=== PATIENT | male | born 1960 | race Caucasian/White ===

== ENCOUNTER 2018-09-21 16:43 | Inpatient (IN) ==
[2018-09-21] MEDS ORDERED: Naloxone 0.4 MG/ML INJ IVP PRN (20:54)
--- NOTE | 2018-09-21 21:03 | Internal Med History&Physical ---
<Maye Ross - Last Filed: 09/21/18 22:58> Date of Encounter: 09/21/18 Time of Encounter: 20:30 Internal Medicine - H&P: HPI Chief complaint: right knee pain History of present illness: Mr. Childress is a 58 year old male with no known past medical history. He p resented to [facility] ED this morning complaining of right knee swelling and pain. It was associated with subjective fever and chills. He noticed the swelling and pain this morning. He went to bed yesterday and reports no issues with the knee. He denies any recent injuries to the right knee. He denies any history of IV drug use. He also denies any recent sexual encounter. He also denies any recent camping recommends or being bit by a tick. He reports 2 weeks ago he had an earache which resolved without any medications. He also reported one week ago on he had an episode of nausea and emesis after dinner. He reports some nausea and emesis lasted 1 day and it subsequently resolved but since then he has not felt as energetic. She is denying any episodes of diarrhea or abdominal pain. He is also denied paresthesia or weakness associated with either of the legs. At [facility] they did a x-ray of the right knee which showed effusion and CT of the knee showed chondrocalcinosis. They did arthrocentesis of the right anterior knee and he reports subsequently his fever and chills resolved. He also received vancomycin and clindamycin. This evening he is only complaining of anterior knee pain that worsens with any movement. He denies shortness of breath or chest pain. Past Med Surg Social Fam HX - Past Medical History Source: patient Medical history: other (denies any diagnosis) - Past Surgical History Surgical History: other (testicular surgery) - Social History Smoking Status: Current every day smoker Packs per day: 1 pack per day for the past 30 years Alcohol use: occasionally (2-3 beers on the weekend) - Family History Mother Hx Family Endocrine Disorder: Yes (diabetes) Internal Medicine - H&P: Meds No Known Home Drugs 09/21/18 [History] Allergy/AdvReac Type Severity Reaction Status Date / Time No Known Allergies Allergy Verified 09/21/18 19:36 All Systems PM: A 10-system review of systems was performed and is negative for pertinent findings except as documented above in the HPI. - Constitutional Constitutional: malaise, no chills, no fever(s), no falls, no weakness - EENT Eyes: no blurry vision, no loss of vision, no pain Nose, mouth and throat: no dysphagia, no odynophagia, no sore throat - Cardiovascular Cardiovascular ROS IM: no chest pain, no dyspnea, no dyspnea on exertion - Respiratory Respiratory: no cough, no dyspnea, no chest congestion - Gastrointestinal Gastrointestinal: no abdominal pain, no constipation, no diarrhea, no hematemesis - Genitourinary Genitourinary ROS male: no dysuria, no hematuria - Musculoskeletal Musculoskeletal ROS IM: other (right knee pain), no arthralgias, no back pain, no numbness, no stiffness - Integumentary Integumentary IM: no erythema, no pruritus, no rash - Neurological Neurological ROS: no abnormal gait, no focal weakness, no numbness, no paresthesias, no tremor(s) - Psychiatric Psychiatric: no anxiety, no depression - Endocrine Endocrine IM: no fatigue, no flushing - Hematologic/Lymphatic Hematologic/Lymphatic: no easy bleeding, no easy bruising - Constitutional Exam: Gen: Vitals noted. No acute distress. Appears comfortable. Eyes: anicteric sclerae, moist conjunctivae; no lid-lag; Pupils equal and reactive to light HENT: Atraumatic; oropharynx clear with moist mucous membranes and no mucosal ulcerations; normal hard and soft palate Neck: Trachea midline; supple, no thyromegaly or lymphadenopathy Cardiac: RRR, no murmur, +S1/S2. No JVD noted. Pulmonary: CTA bilaterally, no wheezes, rales or rhonchi, equal chest expansion Abdomen: soft, nontender, no guarding. No masses MSK: ROM intact of left leg, slight limitation of right knee extension due to pain, mild swelling of right anterior knee Extremities: mild edema of right anterior knee, nontender calf Skin: right knee slightly warmer than left, turgor; no rash, ulcers or subcutaneous nodules Neuro: moves all extremities, no focal deficits, sensation intact of bilateral lower extremities Psych: Appropriate mood and behavior. A&Ox3 - Assessment and Plan (1) Effusion, right knee Current Visit: Yes Status: Acute Assessment and plan: Presented to an outside facility today complaining of acute right knee pain and swelling. Exposure showed suprapatellar effusion He underwent arthrocentesis and Gram stain with cultures at the outside facility WBC count was noted to be 14.5 on admission to [facility], should follow up Received vancomycin and clindamycin at outside facility Orthopedic surgery consulted Continue vancomycin and ceftriaxone CBC in the morning NPO after midnight (2) Elevated WBC count Current Visit: Yes Status: Acute Assessment and plan: Presented to outside facility with right knee pain and swelling. WBC noted to be 14.5 Likely infectious cause of right knee effusion He denies any recent injuries to the knee or previous instrumentation Also denies any low back pain or stiffness and denies recent unprotected sexual encounter Received vancomycin and clindamycin at outside facility Bodily fluid cultures pending Will continue vancomycin and ceftriaxone Called [facility] lab and they report gram stain and cultures will return in three days, continue following up Continue to monitor vitals Qualifiers: Leukocytosis type: unspecified Qualified Code(s): D72.829 - Elevated white blood cell count, unspecified (3) Elevated LFTs Current Visit: Yes Status: Acute Assessment and plan: Noted to have elevated ALT and AST. AST 76, ALT 147 and alkaline phosphatase 222 He denies excessive alcohol use Also denies IV drug use No abdominal pain Repeat LFTs pending with 4 am labs If continues to remain elevated consider GI consult (4) Tobacco use Current Visit: Yes Status: Chronic Assessment and plan: Current smoker 30 pack year history (5) DVT prophylaxis Current Visit: Yes Status: Acute Assessment and plan: SubQ heparin - Time Spent With Patient Total time spent is greater than 50% in coordination of care (as documented) at patient's floor/unit and/or counseling patient: <Saleem Rushing - Last Filed: 09/22/18 07:39> Date of Encounter: 09/22/18 Internal Medicine - H&P: HPI History of present illness: Mr. Childress is a 58 year old male All Systems PM: A 10-system review of systems was performed and is negative for pertinent findings except as documented above in the HPI. - Constitutional Vitals: Temp Pulse Resp BP Pulse Ox 98.5 F 96 16 134/73 98 09/22/18 06:37 09/22/18 06:37 09/22/18 06:37 09/22/18 06:37 04/17/19 06:37 - Time Spent With Patient Total time spent is greater than 50% in coordination of care (as documented) at patient's floor/unit and/or counseling patient: - Attending Attestation I saw and evaluated the patient. I reviewed the residents note, performed my own physical examination and agree with findings and plan as documented in the residents note. Patient seen and examined on 09/22/18. Patient denies complaints. Knee feeling better after being drained. Orthopedic surgery to see this morning, follow up recommendations.
[2018-09-21] MEDS ORDERED: *HR* Heparin 5,000 UNIT/ML VIAL SQ SCH (22:00)
[2018-09-21] MEDS: Ibuprofen 400 MG TABLET PO PRN (22:38)
[2018-09-21] MEDS ORDERED: Acetaminophen 325 MG TABLET PO PRN (22:55)
[2018-09-21] MEDS ORDERED: Ondansetron 4 MG/2 ML VIAL IVP PRN (22:56)
[2018-09-22 07:40] LABS: Basophils % 0.3 %; Eosinophils # 0.1 K/mcL (0.0-0.6); Eosinophils % 0.6 %; Hematocrit 38.1 % (37.5-50.1); Hemoglobin 12.7 g/dL (12.9-16.9); Lymphocytes # 2.4 K/mcL (0.6-4.6); Mean Corpuscular HGB Conc 33.3 g/dL (31.6-35.5); Mean Corpuscular Hemoglobin 32.7 pg (28.0-33.3); Mean Corpuscular Volume 98.2 fL (83.0-100.0); Mean Platelet Volume 8.6 fL (9.4-12.4); Monocytes # 1.6 K/mcL (0.0-1.3); Monocytes % 13.8 %; Neutrophils # 7.3 K/mcL (1.6-8.9); Platelet Count 308 K/mcL (140-400); Red Blood Count 3.88 M/mcL (4.19-5.50); Red Cell Distribution Width 13.3 % (11.5-14.5); Segmented Neutrophils % 63.3 %
[2018-09-22 07:58] LABS: Alanine Aminotransferase 82 Units/L (7-52); Albumin 3.1 g/dL (3.5-5.7); Alkaline Phosphatase 161 Units/L (34-104); Aspartate Amino Transferase 37 Units/L (13-39); BUN/Creatinine Ratio 12 (6-26); Bilirubin,Direct 0.4 mg/dL (0.0-0.2); Bilirubin,Indirect 0.5 mg/dL (0.0-1.2); Bilirubin,Total 0.9 mg/dL (0.3-1.0); Blood Urea Nitrogen 9 mg/dL (6-20); Calcium 9.5 mg/dL (8.6-10.3); Carbon Dioxide 27 mEq/L (23-29); Chloride 102 mEq/L (98-107); Globulin 3.2 g/dL (2.4-3.5); Glucose 109 mg/dL (70-105); Osmolality,Calculated 279 (280-300); Sodium 135 mEq/L (136-145); Total Protein 6.3 g/dL (6.4-8.9); eGFR For Non-African Americans > 60 (> 60)
[2018-09-22 08:01] LABS: INR 1.1; Prothrombin Time 12.2 Seconds (9.4-12.1)
[2018-09-22] MEDS: cefTRIAXone 2,000 MG in Water for inj. (sterile) 20 ML 20 ML IVP SCH (08:38)
[2018-09-22] MEDS: Ibuprofen 400 MG TABLET PO PRN ×2 (08:48→17:54)
--- NOTE | 2018-09-22 08:48 | Orthopedic Consult Note ---
Date of Encounter: 09/22/18 Time of Encounter: 09:00 Assessment and Plan (1) Pain in right knee Current Visit: Yes Status: Acute Qualifiers: Chronicity: acute Qualified Code(s): M25.561 - Pain in right knee (2) Effusion, right knee Current Visit: Yes Status: Acute (3) Elevated WBC count Current Visit: Yes Status: Acute Qualifiers: Leukocytosis type: unspecified Qualified Code(s): D72.829 - Elevated white blood cell count, unspecified History of Present Illness Chief complaint: painful right knee HPI: Mr. Childress is a 58 year old male presenting to [facility] from [facility] for definitive management of effusion of right knee. Patient states he woke up with painful, red, swollen knee yesterday morning and had so much pain with motion and ambulation he presented to ED for evaluation. Patient noted to have received antibiotics at outside hospital. He states after aspiration of the knee at [facility] he had significant relief of pain. He denies ever having had a swollen joint like this before. Denies history of gout. Denies any surgical intervention to the RLE. Admits to surgery for mass removal on right testicle as a young man. Denies any other surgical history. Denies any recent trauma or injury to the knee. 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 On exam patient resting comfortably supine in bed. Alert and oriented x 3. Converses easily. RLE noted to have moderate swelling about the knee. Mild faint erythema noted circumferentially about the knee extending a few cm proximal and distal. No well defined area of erythema noted. Bandage noted to medial joint line at site of aspiration. No drainage noted. On palpation moderate effusion noted. Patient relatively nontender to palpation of the RLE. Warmth noted to effused knee. No calf tenderness or warmth noted. Knee motion severely limited secondary to pain. Patient not tolerating PROM testing and after attempting, states AROM is too painful for testing. Ankle dorsiflexion intact. Neurovascualrly intact RLE. LLE unremarkable on exam. Labwork reviewed from [facility]. Unfortunately it has been discovered that all of their synovial analyses are send out labs and are unable to be reivewed until completed which per [facility] lab will not be for another at least 48 hours. Discussed case with Dr. Metcalf Given patient's presentation significant concern exists for septic right knee. Uric acid wnl, however, CPPD cannot be ruled out at this point, but steroid use would not be recommended without the confirmation of negative gram stain from aspiration. With patient having already received several doses of antibiotic with favorable white count and vitals response, again, concern for infected joint exists. Dr. Metcalf has recommended right knee arthroscopic irrigation and debridement with possible synovial biopsy for definitive evaluation and treatment. This was discussed with patient at time of exam and will be further discussed by Dr. Metcalf with patient tomorrow. S/w Dr. Hernandez re: patient's disposition and plan NPO midnight 09/23 Pain relief as needed per primary team Thank you for this consultation. Past Med Surg Social Fam HX - Past Medical History Medical history: other (denies any diagnosis) Psychiatric history: no psych history - Past Surgical History Surgical History: other Additional surgical history: growth taken off of right testicle when patient was 23 - Social History Smoking Status: Current every day smoker Packs per day: 1 pack per day for the past 30 years Alcohol use: occasionally Drug use: none - Family History Mother Hx Family Endocrine Disorder: Yes (diabetes) Medications and Allergies RX: No Known Home Drugs 09/21/18 [History] Allergy/AdvReac Type Severity Reaction Status Date / Time No Known Allergies Allergy Verified 09/21/18 19:36 All Systems Reviewed: The remainder of the systems were reviewed and are negative Physical Exam - Constitutional Vitals: Temp Pulse Resp BP Pulse Ox 98.5 F 96 16 134/73 98 09/22/18 06:37 09/22/18 06:37 09/22/18 06:37 09/22/18 06:37 09/22/18 06:37 Results - Labs Result Diagrams: 09/23/18 03:21 09/23/18 03:21 Labs: Abnormal lab results WBC 11.5 K/mcL (4.3-11.1) H 09/22/18 07:17 RBC 3.88 M/mcL (4.19-5.50) L 09/22/18 07:17 Hgb 12.7 g/dL (12.9-16.9) L 09/22/18 07:17 MPV 8.6 fL (9.4-12.4) L 09/22/18 07:17 Monocytes # 1.6 K/mcL (0.0-1.3) H 09/22/18 07:17 PT 12.2 Seconds (9.4-12.1) H 09/22/18 07:17 Sodium 135 mEq/L (136-145) L 09/22/18 07:17 Glucose 109 mg/dL (70-105) H 09/22/18 07:17 Calculated Osmolality 279 (280-300) L 09/22/18 07:17 Direct Bilirubin 0.4 mg/dL (0.0-0.2) H 09/22/18 07:17 ALT 82 Units/L (7-52) H 09/22/18 07:17 Alkaline Phosphatase 161 Units/L (34-104) H 09/22/18 07:17 Serum Total Protein 6.3 g/dL (6.4-8.9) L 09/22/18 07:17 Albumin 3.1 g/dL (3.5-5.7) L 09/22/18 07:17 Albumin/Globulin Ratio 1.0 (1.1-2.2) L 09/22/18 07:17 H & H 09/22/18 Range/Units 07:17 Hgb 12.7 L (12.9-16.9) g/dL Hct 38.1 (37.5-50.1) % All other labs normal. Consult Discharge Plan - Plan Referrals: NONE,PCP [Primary Care Provider] -
--- NOTE | 2018-09-22 08:49 | Event Note ---
<Melonie Delgado N - Last Filed: 09/22/18 15:04> Date of Encounter: 09/22/18 Time of Encounter: 08:49 INTERVAL HISTORY Mr. Childress is a 58-year old male who was admitted to the hospital for management of right knee effusion concerning for acute infection. He was started on empiric antibiotic therapy with vancomycin and zosyn. On exam this morning, he reports improvement in pain since joint aspiriation was performed in outside ED. He reports a constant ache in his right knee, and states that the pain is sharp and radiates superiorly and inferiorly from the knee with movement. He reports a low-grade fever overnight of 100.4. He denies any chills, nausea, vomiting, or other concerns at this time. Nursing staff reports no acute overnight events. PHYSICAL EXAM GENERAL: Well-developed, well-nourished, disheveled adult male in no acute distress. HEENT: Atraumatic and normocephalic. CARDIOVASCULAR: Regular rate and rhythm. S1 and S2 present. No murmurs, gallops, or rubs. RESPIRATORY: Clear to auscultation bilaterally. Chest rises and falls symmetrically with respiration. No accessory muscle use noted. GASTROINTESTINAL: Abdomen is soft, nontender, nondistended. EXTREMITIES: No clubbing, cyanosis, or edema present. SKIN: Warm, dry, and intact. Right knee is warm and edematous, without apparent erythema. NEUROLOGIC: Alert and oriented x3. Patient is cooperative with exam and answers questions appropriately. No apparent focal deficits present. PSYCHIATRIC: Appropriate mood and affect. ASSESSMENT AND PLAN (1) Right knee effusion Uncertain etiology - septic arthritis vs. pseudogout vs. inflammatory response. Arthrocentesis was performed at outside facility prior to hospital transfer, with appropriate microbiology studies. Consult placed to orthopedics by ED team. - Continue empiric antibiotic therapy with vancomycin and ceftriaxone. - Cultures pending. Will followup on results. - Orthopedics recommendations pending. Appreciate assistance with management of this problem. (2) Leukocytosis Secondary to acute infection of right knee vs. reactive etiology. - Continue current empiric antibiotic therapy. - Repeat and trend CBC with morning laboratory studies. (3) Elevated LFTs Unclear etiology. Patient denies excessive alcohol consumption, and reports drinking only 3 beers on the weekends. - Repeat LFTs tomorrow with morning laboratory studies. - CIWA evaluation Q4H for signs of alcohol withdrawal; CIWA protocol orders placed if patient begins to show signs of withdrawal. (4) Tobacco abuse - Tobacco cessation counselling provided. - Nicotine patch PRN. Patient declined offer this morning. (5) DVT prophylaxis - SCDs. <Joel Hernandez - Last Filed: 09/22/18 15:15> Date of Encounter: 09/22/18 Mr Childress was admitted earlier this AM due to possible septic R knee. He is being evaluated by ortho. Exam alert Comfortable Mucus membranes dry R knee warm and swollen Agree with assessment and plan as above and in H&P Awaiting further ortho recommendations.
[2018-09-22] MEDS ORDERED: *HR* LORazepam 2 MG/ML VIAL IVP PRN ×3 (11:30)
[2018-09-23] MEDS: Ibuprofen 400 MG TABLET PO PRN ×2 (00:09→09:01)
[2018-09-23 03:36] LABS: Basophils % 0.3 %; Eosinophils # 0.2 K/mcL (0.0-0.6); Eosinophils % 1.4 %; Hematocrit 37.1 % (37.5-50.1); Hemoglobin 12.6 g/dL (12.9-16.9); Immature Granulocytes % 0.8 % (0-4); Lymphocytes # 2.7 K/mcL (0.6-4.6); Lymphocytes % 25.2 %; Mean Platelet Volume 8.6 fL (9.4-12.4); Monocytes # 1.6 K/mcL (0.0-1.3); Monocytes % 15.1 %; Neutrophils # 6.1 K/mcL (1.6-8.9); Platelet Count 361 K/mcL (140-400); Red Blood Count 3.71 M/mcL (4.19-5.50); Red Cell Distribution Width 13.3 % (11.5-14.5); Segmented Neutrophils % 57.2 %
[2018-09-23 03:56] LABS: Alanine Aminotransferase 150 Units/L (7-52); Albumin/Globulin Ratio 0.9 (1.1-2.2); Alkaline Phosphatase 245 Units/L (34-104); Aspartate Amino Transferase 112 Units/L (13-39); BUN/Creatinine Ratio 14 (6-26); Bilirubin,Total 0.6 mg/dL (0.3-1.0); Blood Urea Nitrogen 11 mg/dL (6-20); Calcium 9.2 mg/dL (8.6-10.3); Carbon Dioxide 27 mEq/L (23-29); Chloride 103 mEq/L (98-107); Globulin 3.3 g/dL (2.4-3.5); Glucose 125 mg/dL (70-105); Osmolality,Calculated 283 (280-300); Sodium 136 mEq/L (136-145); Total Protein 6.3 g/dL (6.4-8.9); eGFR For Non-African Americans > 60 (> 60)
--- NOTE | 2018-09-23 07:48 | Orthopedics Progress Note ---
Date of Encounter: 09/23/18 Time of Encounter: 07:47 Subjective Interval history: Patient seen this morning swelling of right knee unfortunately this was aspirated another facility which sends out results for Gram stain and culture. Patient has elevated CRP patient significant discomfort no erythema. Recommendations for right knee arthroscopic irrigation and debridement. We reviewed the risks and benefits as well as recovery. All questions were answered. The patient agreed to this treatment plan and acknowledged an understanding of the treatment plan as described. Objective Vital signs: Vital Signs Temp Pulse Resp BP Pulse Ox 09/23/18 06:35 98.3 F 78 16 112/68 98 09/23/18 04:09 98.1 F 73 17 106/67 97 09/22/18 23:24 98.2 F 88 17 125/83 96 09/22/18 19:19 99.1 F 92 20 129/79 95 09/22/18 15:54 90 18 127/73 94 09/22/18 14:11 98 F 76 18 128/76 96 09/22/18 11:50 97.6 F 79 16 123/73 97 Intake and Output 09/22/18 09/22/18 09/23/18 15:59 23:59 07:59 Intake Total 140 / 140 450 / 450 500 / 500 Output Total 450 / 450 875 / 875 1000 / 1000 Balance -310 / -310 -425 / -425 -500 / -500 Intake: IV Fluids 20 / 20 250 / 250 250 / 250 Rocephin 2,000 MG In Water for 20 / 20 inj. (sterile) 20 ML @ 600 mls/ hr IVP Q24H [facility] Rx#:[id number] Vancocin 1,000 MG In 0.9 % 250 / 250 250 / 250 Sodium Chloride 250 ML @ 167 mls/hr IVPB Q12H [facility] Rx#: [id number] Oral 120 / 120 200 / 200 250 / 250 Output: Urine 450 / 450 875 / 875 1000 / 1000 Other: Meal Lunch Percent of Meal Consumed 100% Weight 76.4 kg Patient Weight 09/23/18 23:59 Weight 76.4 kg - Labs CBC & BMP: 09/23/18 03:21 09/23/18 03:21 Labs: Abnormal lab results RBC 3.71 M/mcL (4.19-5.50) L 09/23/18 03:21 Hgb 12.6 g/dL (12.9-16.9) L 09/23/18 03:21 Hct 37.1 % (37.5-50.1) L 09/23/18 03:21 MCH 34.0 pg (28.0-33.3) H 09/23/18 03:21 MPV 8.6 fL (9.4-12.4) L 09/23/18 03:21 Monocytes # 1.6 K/mcL (0.0-1.3) H 09/23/18 03:21 PT 12.2 Seconds (9.4-12.1) H 09/22/18 07:17 Glucose 125 mg/dL (70-105) H 09/23/18 03:21 Direct Bilirubin 0.4 mg/dL (0.0-0.2) H 09/22/18 07:17 AST 112 Units/L (13-39) H 09/23/18 03:21 ALT 150 Units/L (7-52) H 09/23/18 03:21 Alkaline Phosphatase 245 Units/L (34-104) H 09/23/18 03:21 Serum Total Protein 6.3 g/dL (6.4-8.9) L 09/23/18 03:21 Albumin 3.0 g/dL (3.5-5.7) L 09/23/18 03:21 Albumin/Globulin Ratio 0.9 (1.1-2.2) L 09/23/18 03:21 Consult Discharge Plan - Plan Referrals: NONE,PCP [Primary Care Provider] -
--- NOTE | 2018-09-23 08:07 | Internal Med Progress Note ---
<Joel Hernandez - Last Filed: 09/23/18 12:52> Hospitalist Progress Note - Encounter Date of Encounter: 09/23/18 - Exam Vitals: Temp Pulse Resp BP Pulse Ox 98.4 F 71 17 115/73 97 09/23/18 11:30 09/23/18 11:30 09/23/18 11:30 09/23/18 11:30 09/23/18 11:30 - Assessment and Plan (1) Septic joint of right knee joint Current Visit: Yes Status: Suspected (2) Elevated LFTs Current Visit: Yes Status: Acute (3) Effusion, right knee Current Visit: Yes Status: Acute (4) Tobacco use Current Visit: Yes Status: Chronic (5) DVT prophylaxis Current Visit: Yes Status: Acute (6) Elevated WBC count Current Visit: Yes Status: Acute - Time Spent with Patient Total time spent is greater than 50% in coordination of care (as documented) at patient's floor/unit and/or counseling patient: Internal Medicine: Result - Labs CBC & Chem 7: 09/23/18 03:21 09/23/18 03:21 Labs: Short CBC 09/23/18 Range/Units 03:21 WBC 10.7 (4.3-11.1) K/mcL Hgb 12.6 L (12.9-16.9) g/dL Hct 37.1 L (37.5-50.1) % Plt Count 361 (140-400) K/mcL Neutrophils # 6.1 (1.6-8.9) K/mcL BMP 09/23/18 03:21 Sodium 136 Potassium 4.0 Chloride 103 Carbon Dioxide 27 BUN 11 Creatinine 0.80 Glucose 125 H Calcium 9.2 Liver Function 09/23/18 Range/Units 03:21 Total Bilirubin 0.6 (0.3-1.0) mg/dL AST 112 H (13-39) Units/L ALT 150 H (7-52) Units/L Alkaline Phosphatase 245 H (34-104) Units/L Albumin 3.0 L (3.5-5.7) g/dL - ABG Interpretation ABG results: PT/INR, D-dimer PT 12.2 Seconds (9.4-12.1) H 09/22/18 07:17 Consult Discharge Plan - Plan Referrals: NONE,PCP [Primary Care Provider] - - Attending Attestation I examined this patient and my medical decision-making was reviewed with the Resident Physician on 09/23/18. I agree with the documented findings, disposition and treatment plan as described except to the extent set forth below. Mr Childress is currently admitted for potential infected R knee. He remains moderate to high risk due to potential for worsening clinical status. Mr Childress is resting. He is to go to OR today. No fever or chills. No CP or SOB. Exam alert Comfortable Mucus membranes dry Heart reg No wheeze abd soft and nontender R knee about the same I/P 1. Possible R knee septic joint - to go to OR today for washout. Further diagnoses and plan as above. <Melonie Delgado N - Last Filed: 09/23/18 20:03> Hospitalist Progress Note - Encounter Date of Encounter: 09/23/18 Time of Encounter: 08:07 - Subjective Interval History: Patient seen and evaluated at the bedside. He reports continued pain and swelling in his right knee, which he states is a constant ache; however, if he moves his knee, he has sharp shooting pain from medial to lateral across the knee joint. He denies any fevers, chills, or worsening redness. Patient is currently NPO awaiting arthroscopy with Dr. Metcalf later today. He denies any acute concerns at this time. - Exam Vitals: Temp Pulse Resp BP Pulse Ox 98.3 F 78 16 112/68 98 09/23/18 06:35 09/23/18 06:35 09/23/18 06:35 09/23/18 06:35 09/23/18 06:35 Exam: GENERAL: Well-developed, well-nourished, disheveled adult male in no acute distress. HEENT: Atraumatic and normocephalic. CARDIOVASCULAR: Regular rate and rhythm. S1 and S2 present. No murmurs, gallops, or rubs. RESPIRATORY: Clear to auscultation bilaterally. Chest rises and falls symmetrically with respiration. No accessory muscle use noted. GASTROINTESTINAL: Abdomen is soft, nontender, nondistended. EXTREMITIES: No clubbing, cyanosis, or edema present. SKIN: Warm, dry, and intact. Right knee is warm and edematous, without apparent erythema. NEUROLOGIC: Alert and oriented x3. Patient is cooperative with exam and answers questions appropriately. No apparent focal deficits present. PSYCHIATRIC: Appropriate mood and affect. - Assessment and Plan (1) Effusion, right knee Current Visit: Yes Status: Acute Assessment and Plan: Uncertain etiology - septic arthritis vs. pseudogout vs. inflammatory response. Arthrocentesis was performed at outside facility prior to hospital transfer, with appropriate microbiology studies. Consult placed to orthopedics by ED team. - Continue empiric antibiotic therapy with vancomycin and ceftriaxone. - Cultures pending. Will followup on results. - Plan for arthroscopy today with Dr. Metcalf. (2) Elevated WBC count Current Visit: Yes Status: Acute Assessment and Plan: Secondary to acute infection of right knee vs. reactive etiology. - Continue current empiric antibiotic therapy. - Repeat and trend CBC with morning laboratory studies. (3) Elevated LFTs Current Visit: Yes Status: Acute Assessment and Plan: Unclear etiology. Patient denies excessive alcohol consumption, and reports drinking only 3 beers on the weekends. - Repeat LFTs tomorrow with morning laboratory studies. - CIWA evaluation Q4H for signs of alcohol withdrawal; CIWA protocol orders placed if patient begins to show signs of withdrawal. (4) Tobacco use Current Visit: Yes Status: Chronic Assessment and Plan: - Tobacco cessation counselling provided. - Nicotine patch PRN. Patient declined offer this morning. (5) DVT prophylaxis Current Visit: Yes Status: Acute Assessment and Plan: - SCDs. - Time Spent with Patient Total time spent is greater than 50% in coordination of care (as documented) at patient's floor/unit and/or counseling patient: Internal Medicine: Result - Labs CBC & Chem 7: 09/23/18 03:21 09/23/18 03:21 Labs: Short CBC 09/23/18 Range/Units 03:21 WBC 10.7 (4.3-11.1) K/mcL Hgb 12.6 L (12.9-16.9) g/dL Hct 37.1 L (37.5-50.1) % Plt Count 361 (140-400) K/mcL Neutrophils # 6.1 (1.6-8.9) K/mcL BMP 09/23/18 03:21 Sodium 136 Potassium 4.0 Chloride 103 Carbon Dioxide 27 BUN 11 Creatinine 0.80 Glucose 125 H Calcium 9.2 Liver Function 09/23/18 Range/Units 03:21 Total Bilirubin 0.6 (0.3-1.0) mg/dL AST 112 H (13-39) Units/L ALT 150 H (7-52) Units/L Alkaline Phosphatase 245 H (34-104) Units/L Albumin 3.0 L (3.5-5.7) g/dL - ABG Interpretation ABG results: PT/INR, D-dimer PT 12.2 Seconds (9.4-12.1) H 09/22/18 07:17 <Joel Hernandez - Last Filed: 09/23/18 12:52> (1) Septic joint of right knee joint Qualifiers: Septic arthritis organism: streptococcal Qualified Code(s): M00.261 - Other streptococcal arthritis, right knee (6) Elevated WBC count Qualifiers: Leukocytosis type: unspecified Qualified Code(s): D72.829 - Elevated white blood cell count, unspecified <Melonie Delgado - Last Filed: 09/23/18 20:03> (2) Elevated WBC count Qualifiers: Leukocytosis type: unspecified Qualified Code(s): D72.829 - Elevated white bl ood cell count, unspecified
[2018-09-23] MEDS: cefTRIAXone 2,000 MG in Water for inj. (sterile) 20 ML 20 ML IVP SCH (09:02)
--- NOTE | 2018-09-23 17:20 | Anesthesia Evaluation PreOp ---
Date of Encounter: 09/23/18 Time of Encounter: 17:18 - Past History Planned Operation: Right Knee scope I & D Cardiac History: Denies any Significant Hx Pulmonary History: Smoker, Pack/yr (30) HOME APPLIANCE TECHNICIAN History: Denies Any Significant HX Other Medical History: Denies Any Significant HX Anesthesia History: No Prior Anesthetic Complications Alcohol Use: occasionally Drug use: none Medications and Allergies No Known Home Drugs 09/21/18 [History] Allergy/AdvReac Type Severity Reaction Status Date / Time No Known Allergies Allergy Verified 09/21/18 19:36 - Meds/Allergy Pre-op Review Medications Reviewed: Yes Allergies Reviewed: Yes Beta Blockers on Current Med List: No Anesthesia Results - Labs 09/23/18 03:21 09/23/18 03:21 Anesthesia Exam O2 Sat Weight 76.4 kg O2 Sat by Pulse Oximetry 97 O2 Sat by Pulse Oximetry 96 O2 Sat by Pulse Oximetry 97 O2 Sat by Pulse Oximetry 97 O2 Sat by Pulse Oximetry 98 O2 Sat by Pulse Oximetry 97 O2 Sat by Pulse Oximetry 96 O2 Sat by Pulse Oximetry 95 Vital Signs Temp Pulse Resp BP Pulse Ox 100.4 F H 106 17 149/88 96 09/21/18 21:02 09/21/18 21:02 09/21/18 21:02 09/21/18 21:02 09/21/18 21:02 Vital Signs/O2 Sat, Most Current Temp Pulse Resp BP Pulse Ox 98.4 F 71 17 115/73 97 09/23/18 11:30 09/23/18 11:30 09/23/18 11:30 09/23/18 11:30 09/23/18 11:30 NPO (# of Hours): > 8 hrs Pain Scale: 0 Pain Scale Used: Numeric (1 - 10) - HEENT Pupil (Motor): Pupils equal, EOMI Mallampati: I Teeth: Poor dentition Oral Opening: Greater than 3 - HOME APPLIANCE TECHNICIAN LOC: Oriented HOME APPLIANCE TECHNICIAN Motor: Normal RUE, Normal LUE, Normal RLE, Normal LLE, Normal Face HOME APPLIANCE TECHNICIAN Sensory: Normal: RUE, LUE, RLE, LLE, Face - Cardiac Rhythm: Regular Murmur: None JVD: No Carotid Bruit: No - Pulmonary Breath Sounds: bilateral Clear Respiratory Effort: Symmetrical Anesthesia Assess/Plan ASA Score: 2 Level of consciousness: Cooperative Anesthetic Plan: General Autologous Blood: Yes Monitoring Plan: Standard Monitors Recovery Plan: PACU
[2018-09-23] MEDS ORDERED: Bupivacaine/EPI 1:200k 0.5%PF 30 ML VIAL ONE (17:49)
[2018-09-23] MEDS ORDERED: Ondansetron 4 MG/2 ML VIAL ONE (18:00)
[2018-09-23] MEDS ORDERED: *HR* Midazolam HCl 2 MG/2 ML VIAL ONE (18:00)
[2018-09-23] MEDS ORDERED: Lidocaine -MPF 2% 2 ML VIAL ONE (18:00)
[2018-09-23] MEDS ORDERED: Dexamethasone 4 MG/ML VIAL ONE (18:00)
[2018-09-23] MEDS ORDERED: *HR* Propofol 200 MG/20 ML VIAL IVP ONE (18:01)
[2018-09-23] MEDS ORDERED: *HR* FentaNYL (PF) 100 MCG/2 ML VIAL ONE (18:04)
[2018-09-23] MEDS ORDERED: *HR* HYDROMORPHONE 2 MG/ML VIAL ONE (18:19)
--- NOTE | 2018-09-23 18:27 | Orthopedic Operative Note ---
Date of procedure: 09/23/18 Pre-op diagnosis: Infected right knee Post-op diagnosis: same Procedure: Procedure: Right knee arthroscopic irrigation debridement Estimated blood loss: 5cc Hardware: Cartilage surfaces: Patella:3 Trochlear groove:normal Medial compartment:3 Lateral compartment:normal Exam Under anesthesia: Full flexion and full extension no instability no erythema, grade 3 effusion. Patient was brought to the operating room and placed on the operating room t able. After general anesthesia was administered. The operative leg was examined and noted. The operative leg was prepped and draped in the sterile surgical fashion. The patient received IV antibiotics prior to skin incision. A superior medial outflow portal was established purulent material was returned, it was sent for Gram stain and culture. The arthroscope was introduced through an anterolateral portal. Diagnostic evaluation of the patella trochlear groove medial and lateral compartments were performed. Patient noted to have grade 3 changes undersurface of patella and medial femoral condyle. Patient also had evidence of previous partial medial meniscectomy in the past possibly. No articular injury medial and lateral compartments. ACL PCL without pathology. Lateral meniscus intact medial meniscus no new tears. 6 L of fluid were flushed through the knee. The arthroscope was removed from the knee. Portals were closed with interrupted 2-0 nylon suture. The knee was infiltrated with half percent Marcaine with epinephrine. The patient was placed in a sterile dressing. The patient was extubated and tolerated the procedure well and transferred to the recovery room in stable condition. Anesthesia: GETA Surgeon: Willy Metcalf Was there an apartment assistant manager present: No Estimated blood loss (cc): 5 Condition: stable Disposition: PACU
--- NOTE | 2018-09-23 19:06 | Anesthesia Evaluation Post Op ---
Date of Encounter: 09/23/18 Time of Encounter: 19:06 - Vital Signs Vital Signs: Vital Signs/O2 Sat, Most Current Temp Pulse Resp BP Pulse Ox 98.2 F 95 16 139/90 96 09/23/18 19:04 09/23/18 19:04 09/23/18 19:04 09/23/18 19:04 09/23/18 19:04 - Lungs Lungs: Clear Ascult./Percussion - Airway Airway: Non-obstructed - Cardiovascular Regular Rate - Pain Pain Scale: 0 Pain Scale used: Numeric (1 - 10) - Nausea Vomiting Nausea Vomiting: Not Present - Hydration Hydration: Tolerates oral liquids - Discharge PostOp Status: Transfer Patient to floor
[2018-09-23] MEDS ORDERED: Sennosides 8.6 MG TABLET PO PRN (19:18)
[2018-09-23] MEDS ORDERED: MOM Conc 10 ML UD.LIQ PO PRN (19:18)
[2018-09-23] MEDS ORDERED: Ringers Solution, Lactated 1,000 ML IVC SCH (19:18)
[2018-09-23] MEDS ORDERED: Naloxone 0.4 MG/ML INJ IVP PRN ×2 (19:18)
[2018-09-23] MEDS ORDERED: *HR* Promethazine 25 MG/ML VIAL IVP PRN (19:18)
[2018-09-23] MEDS ORDERED: Ondansetron 4 MG/2 ML VIAL IVP PRN ×2 (19:18)
[2018-09-23] MEDS ORDERED: *HR* LORazepam 2 MG/ML VIAL IVP PRN ×3 (19:18)
[2018-09-23] MEDS: Acetaminophen 325 MG TABLET PO PRN (21:22)
[2018-09-23] MEDS ORDERED: *HR* HYDROcodone/Acet 5/325 mg TABLET PO PRN (21:28)
[2018-09-24 04:27] LABS: Basophils % 0.2 %; Hematocrit 37.1 % (37.5-50.1); Hemoglobin 12.2 g/dL (12.9-16.9); Immature Granulocytes % 1.1 % (0-4); Lymphocytes % 9.4 %; Mean Corpuscular HGB Conc 32.9 g/dL (31.6-35.5); Mean Corpuscular Hemoglobin 32.9 pg (28.0-33.3); Mean Platelet Volume 8.6 fL (9.4-12.4); Monocytes # 0.9 K/mcL (0.0-1.3); Neutrophils # 8.8 K/mcL (1.6-8.9); Platelet Count 433 K/mcL (140-400); Red Blood Count 3.71 M/mcL (4.19-5.50); Red Cell Distribution Width 13.2 % (11.5-14.5); Segmented Neutrophils % 81.3 %
[2018-09-24 04:42] LABS: BUN/Creatinine Ratio 15 (6-26); Blood Urea Nitrogen 11 mg/dL (6-20); Calcium 9.6 mg/dL (8.6-10.3); Carbon Dioxide 28 mEq/L (23-29); Chloride 99 mEq/L (98-107); Glucose 158 mg/dL (70-105); Osmolality,Calculated 279 (280-300); Potassium 4.5 mEq/L (3.5-5.1); Sodium 133 mEq/L (136-145); eGFR For Non-African Americans > 60 (> 60)
[2018-09-24 06:08] LABS: Troponin I < 0.03 ng/mL (< 0.04)
--- NOTE | 2018-09-24 06:26 | Orthopedics Progress Note ---
Date of Encounter: 09/24/18 Time of Encounter: 06:25 Subjective Interval history: Patient was seen this morning doing well without complaints. Afebrile vital signs stable. Operative extremity: Neurovascularly intact Dressing clean dry and intact Calves nontender Assessment and plan: Continue with postoperative care Cultures pending Objective Vital signs: Vital Signs Temp Pulse Pulse Resp BP Pulse Ox 09/24/18 04:26 97.7 F 72 16 127/73 95 09/23/18 22:30 98.7 F 76 16 122/84 94 09/23/18 21:30 98.4 F 78 16 115/76 95 09/23/18 20:30 98.5 F 84 16 129/80 95 09/23/18 20:05 98.6 F 76 16 132/82 96 09/23/18 19:30 98.2 F 78 76 16 130/78 95 09/23/18 19:04 98.2 F 95 16 139/90 96 09/23/18 18:55 96 14 138/83 96 09/23/18 18:45 100 18 136/38 95 09/23/18 18:35 99.8 F H 96 16 105/72 93 09/23/18 11:30 98.4 F 71 17 115/73 97 09/23/18 09:45 98.4 F 86 18 128/76 96 09/23/18 09:00 98.7 F 80 18 120/72 97 09/23/18 06:35 98.3 F 78 16 112/68 98 Intake and Output 09/23/18 09/23/18 09/24/18 15:59 23:59 07:59 Intake Total Output Total 300 / 300 305 / 305 Balance -280 / -280 -305 / -305 Intake: IV Fluids Rocephin 2,000 MG In Water for inj. (sterile) 20 ML @ 600 mls/ hr IVP Q24H [facility] Rx#:[id number] Oral 0 / 0 Tube Feeding 0 / 0 Other 0 / 0 Intake, Autotransfusion Amount 0 / 0 Free Water 0 / 0 Output: Urine 300 / 300 300 / 300 Estimated Blood Loss 5 / 5 Other: Meal Lunch Percent of Meal Consumed 0% Weight 79 kg - Labs CBC & BMP: 09/24/18 03:39 09/24/18 03:39 Labs: Abnormal lab results RBC 3.71 M/mcL (4.19-5.50) L 09/24/18 03:39 Hgb 12.2 g/dL (12.9-16.9) L 09/24/18 03:39 Hct 37.1 % (37.5-50.1) L 09/24/18 03:39 Plt Count 433 K/mcL (140-400) H 09/24/18 03:39 MPV 8.6 fL (9.4-12.4) L 09/24/18 03:39 PT 12.2 Seconds (9.4-12.1) H 09/22/18 07:17 Sodium 133 mEq/L (136-145) L 09/24/18 03:39 Glucose 158 mg/dL (70-105) H 09/24/18 03:39 Calculated Osmolality 279 (280-300) L 09/24/18 03:39 Direct Bilirubin 0.4 mg/dL (0.0-0.2) H 09/22/18 07:17 AST 112 Units/L (13-39) H 09/23/18 03:21 ALT 150 Units/L (7-52) H 09/23/18 03:21 Alkaline Phosphatase 245 Units/L (34-104) H 09/23/18 03:21 Serum Total Protein 6.3 g/dL (6.4-8.9) L 09/23/18 03:21 Albumin 3.0 g/dL (3.5-5.7) L 09/23/18 03:21 Albumin/Globulin Ratio 0.9 (1.1-2.2) L 09/23/18 03:21 Consult Discharge Plan - Plan Referrals: NONE,PCP [Primary Care Provider] -
--- NOTE | 2018-09-24 07:04 | Event Note ---
Date of Encounter: 09/24/18 Time of Encounter: 04:21 Notified by nurse of patient appearing to have ST elevation on tele. Ordered EKG computer read shows junctional rhythm, slight ST elevation. No previous EKG on file for comparison. Patient vitals stable denying any chest pain, palpitations, shortness of breath. Will order troponin to ensure normal. Continue tele and nurse to notify of any changes. Reviewed EKG and plan with Dr uRshing.
--- NOTE | 2018-09-24 07:46 | Event Note ---
Date of Encounter: 09/24/18 Time of Encounter: 07:42 Patient was seen and examined. I agree with the progress note as written by the resident physician. Patient admitted with right knee swelling and went to the OR for irrigation and debridement by orthopedics. Cultures are negative to date. He had arthrocentesis done as a facility prior to coming here with cultures there is still pending. He was put on IV vancomycin and ceftriaxone. Noted to have elevated liver function tests. Unclear etiology. Reports some nausea and vomi ting with food prior to this. Yesterday there was some concerning telemetry findings were ST elevations but troponins came back negative. EKG not concerning. Denies any chest pain. GEN: NAD CVS: RRR. S1, S2, No m/r/g RESP: CTAB ABD: Soft, NT, ND, +BS EXT: No edema. 2+ DP. No rashes. Dressing is clean and dry. NEURO: Nonfocal Continue IV vancomycin and Rocephin. Follow up on cultures and try to call [facility] see if cultures there have been finalized. Follow-up on LFTs here today. Get a right upper quadrant ultrasound Continue telemetry Check magnesium and TSH.
[2018-09-24 07:59] LABS: Alanine Aminotransferase 100 Units/L (7-52); Albumin 3.1 g/dL (3.5-5.7); Albumin/Globulin Ratio 0.9 (1.1-2.2); Alkaline Phosphatase 225 Units/L (34-104); Aspartate Amino Transferase 40 Units/L (13-39); Bilirubin,Direct 0.3 mg/dL (0.0-0.2); Bilirubin,Indirect 0.3 mg/dL (0.0-1.2); Bilirubin,Total 0.6 mg/dL (0.3-1.0); Globulin 3.3 g/dL (2.4-3.5); Total Protein 6.4 g/dL (6.4-8.9)
--- NOTE | 2018-09-24 08:55 | Internal Med Progress Note ---
Hospitalist Progress Note - Encounter Date of Encounter: 09/24/18 Time of Encounter: 08:55 - Subjective Interval History: Patient seen and evaluated at the bedside. He endorses significant improvement in his knee pain since undergoing arthroscopy and washout yesterday with Dr. Metcalf. Patient was noted to have some irregularities in his telemetry monitoring overnight, with concern for ST changes; however, stat troponin was WNL. Patient reports no acute complaints at this time. - Exam Vitals: Temp Pulse Resp BP Pulse Ox 97.5 F L 74 14 135/79 95 09/24/18 07:56 09/24/18 07:56 09/24/18 07:56 09/24/18 07:56 09/24/18 07:56 Exam: GENERAL: Well-developed, well-nourished, disheveled adult male in no acute distress. HEENT: Atraumatic and normocephalic. CARDIOVASCULAR: Regular rate and rhythm. S1 and S2 present. No murmurs, gallops, or rubs. RESPIRATORY: Clear to auscultation bilaterally. Chest rises and falls symmetrically with respiration. No accessory muscle use noted. GASTROINTESTINAL: Abdomen is soft, nontender, nondistended. EXTREMITIES: No clubbing, cyanosis, or edema present. SKIN: Warm, dry, and intact. Right knee is wrapped in surgical dressings, with no apparent edema. NEUROLOGIC: Alert and oriented x3. Patient is cooperative with exam and answers questions appropriately. No apparent focal deficits present. PSYCHIATRIC: Appropriate mood and affect. - Assessment and Plan (1) Effusion, right knee Current Visit: Yes Status: Acute Assessment and Plan: Uncertain etiology - septic arthritis vs. pseudogout vs. inflammatory response. Arthrocentesis was performed at outside facility prior to hospital transfer, with appropriate microbiology studies. Arthroscopy and joint washout was performed yesterday by Dr. Metcalf. - Continue empiric antibiotic therapy with vancomycin and ceftriaxone. - Cultures pending. Will followup on results. - Appreciate ongoing recommendations from orthopedic surgery. (2) Elevated LFTs Current Visit: Yes Status: Acute Assessment and Plan: Unclear etiology. Patient denies excessive alcohol consumption, and reports drinking only 3 beers on the weekends. LFTs have continued to be high on repeat laboratory studies throughout hospitalization admission. - Hepatic ultrasound pending. - Continue to repeat in trend LFTs. (3) Hypothyroidism Current Visit: Yes Status: Acute Assessment and Plan: Patient noted to have significantly elevated TSH of 21.032. Subsequent free T4 laboratory study was significant for a low value of 0.14. - Start Synthroid 88mcg daily. - Patient will require outpatient follow-up to ensure proper thyroid hormone dosing. (4) Abnormal EKG Current Visit: Yes Status: Acute Assessment and Plan: Patient reportedly had abnormal telemetry overnight, with concern for ST elevation. Per that note, EKG was ordered, with computer reading significant for junctional rhythm and slight ST elevation. Troponin drawn at that time was WNL. On evaluation this morning, patient denies any chest pain, palpitations, shortness breath, or cardiac symptoms. Magnesium noted to be WNL. - Continue telemetry monitoring. - Anticipate repeat EKG and troponin if patient begins to develop arrhythmia or symptoms concerning for cardiac involvement. (5) Elevated WBC count Current Visit: Yes Status: Resolved (6) Tobacco use Current Visit: Yes Status: Chronic Assessment and Plan: - Tobacco cessation counselling provided. - Nicotine patch PRN. Patient declined offer this morning. (7) DVT prophylaxis Current Visit: Yes Status: Acute Assessment and Plan: - SCDs. - Time Spent with Patient Total time spent is greater than 50% in coordination of care (as documented) at patient's floor/unit and/or counseling patient: Internal Medicine: Result - Labs CBC & Chem 7: 09/24/18 03:39 09/24/18 03:39 Labs: Short CBC 09/24/18 Range/Units 03:39 WBC 10.8 (4.3-11.1) K/mcL Hgb 12.2 L (12.9-16.9) g/dL Hct 37.1 L (37.5-50.1) % Plt Count 433 H (140-400) K/mcL Neutrophils # 8.8 (1.6-8.9) K/mcL BMP 09/24/18 03:39 Sodium 133 L Potassium 4.5 Chloride 99 Carbon Dioxide 28 BUN 11 Creatinine 0.73 Glucose 158 H Calcium 9.6 Cardiac Enzymes 09/24/18 Range/Units 03:39 Troponin I < 0.03 (< 0.04) ng/mL Liver Function 09/24/18 Range/Units 03:39 Total Bilirubin 0.6 (0.3-1.0) mg/dL Direct Bilirubin 0.3 H (0.0-0.2) mg/dL AST 40 H (13-39) Units/L ALT 100 H (7-52) Units/L Alkaline Phosphatase 225 H (34-104) Units/L Albumin 3.1 L (3.5-5.7) g/dL - ABG Interpretation ABG results: PT/INR, D-dimer PT 12.2 Seconds (9.4-12.1) H 09/22/18 07:17 Consult Discharge Plan - Plan Referrals: NONE,PCP [Primary Care Provider] - (5) Elevated WBC count Qualifiers: Leukocytosis type: unspecified Qualified Code(s): D72.829 - Elevated white blood cell count, unspecified
[2018-09-24] MEDS: *HR* OxyCODONE/APAP 5/325 TABLET PO PRN ×3 (09:00→23:22)
[2018-09-24] MEDS: Ascorbic Acid 500 MG TABLET PO SCH ×2 (09:00→17:40)
[2018-09-24] MEDS: Multivit/Ca/Min/Fe/FA 1 TAB TABLET PO SCH (09:00)
[2018-09-24] MEDS: cefTRIAXone 2,000 MG in Water for inj. (sterile) 20 ML 20 ML IVP SCH (09:01)
[2018-09-24 09:44] LABS: Magnesium 2.3 mg/dL (1.6-2.6)
[2018-09-24 09:57] LABS: Thyroid Stimulating Hormone 21.032 mcIU/mL (0.340-5.600)
[2018-09-25 01:33] LABS: Basophils % 0.2 %; Eosinophils # 0.1 K/mcL (0.0-0.6); Hematocrit 35.7 % (37.5-50.1); Hemoglobin 12.2 g/dL (12.9-16.9); Immature Granulocytes % 0.7 % (0-4); Lymphocytes # 2.7 K/mcL (0.6-4.6); Lymphocytes % 25.1 %; Mean Corpuscular HGB Conc 34.2 g/dL (31.6-35.5); Mean Corpuscular Hemoglobin 33.2 pg (28.0-33.3); Mean Corpuscular Volume 97.3 fL (83.0-100.0); Mean Platelet Volume 8.4 fL (9.4-12.4); Monocytes # 1.2 K/mcL (0.0-1.3); Monocytes % 11.1 %; Neutrophils # 6.6 K/mcL (1.6-8.9); Platelet Count 490 K/mcL (140-400); Red Blood Count 3.67 M/mcL (4.19-5.50); Red Cell Distribution Width 13.1 % (11.5-14.5); Segmented Neutrophils % 61.9 %
[2018-09-25 01:52] LABS: Alanine Aminotransferase 143 Units/L (7-52); Albumin/Globulin Ratio 0.9 (1.1-2.2); Alkaline Phosphatase 241 Units/L (34-104); Aspartate Amino Transferase 101 Units/L (13-39); BUN/Creatinine Ratio 14 (6-26); Bilirubin,Total 0.5 mg/dL (0.3-1.0); Blood Urea Nitrogen 13 mg/dL (6-20); Calcium 9.1 mg/dL (8.6-10.3); Carbon Dioxide 27 mEq/L (23-29); Chloride 101 mEq/L (98-107); Globulin 3.2 g/dL (2.4-3.5); Glucose 110 mg/dL (70-105); Osmolality,Calculated 283 (280-300); Potassium 3.6 mEq/L (3.5-5.1); Sodium 136 mEq/L (136-145); Total Protein 6.2 g/dL (6.4-8.9); eGFR For Non-African Americans > 60 (> 60)
[2018-09-25] MEDS: *HR* OxyCODONE/APAP 5/325 TABLET PO PRN (06:21)
--- NOTE | 2018-09-25 08:58 | Internal Med Progress Note ---
Hospitalist Progress Note - Encounter Date of Encounter: 09/25/18 Time of Encounter: 08:58 - Subjective Interval History: Patient was seen and evaluated at the bedside. He denies any fevers, chills, worsening pain, or erythema of the right knee. He expressed that he is eager to return home soon; however, he voices understanding with need to await final culture results to ensure appropriate antimicrobial therapy. Nursing staff reports no acute overnight events. - Exam Vitals: Temp Pulse Resp BP Pulse Ox 97.8 F 78 16 121/69 97 09/25/18 06:39 09/25/18 06:39 09/25/18 06:39 09/25/18 06:39 09/25/18 06:39 Exam: GENERAL: Well-developed, well-nourished, adult male in no acute distress. HEENT: Atraumatic and normocephalic. CARDIOVASCULAR: Regular rate and rhythm. S1 and S2 present. No murmurs, gallops, or rubs. RESPIRATORY: Clear to auscultation bilaterally. Chest rises and falls symmetrically with respiration. No accessory muscle use noted. GASTROINTESTINAL: Abdomen is soft, nontender, nondistended. EXTREMITIES: No clubbing, cyanosis, or edema present. SKIN: Warm, dry, and intact. Right knee is wrapped in surgical dressings, with no apparent edema. NEUROLOGIC: Alert and oriented x3. Patient is cooperative with exam and answers questions appropriately. No apparent focal deficits present. PSYCHIATRIC: Appropriate mood and affect. - Assessment and Plan (1) Effusion, right knee Current Visit: Yes Status: Acute Assessment and Plan: Uncertain etiology - septic arthritis vs. pseudogout vs. inflammatory response. Arthrocentesis was performed at outside facility prior to hospital transfer, with appropriate microbiology studies. Arthroscopy and joint washout was performed on 09/23/[address] Metcalf. Since that procedure, patient has had significant improvement in the pain. - Continue empiric antibiotic therapy with vancomycin and ceftriaxone. - Cultures pending. [facility] laboratory was contacted this afternoon; however, aspiration culture results have not yet finalized. - Appreciate ongoing recommendations from orthopedic surgery. (2) Elevated LFTs Current Visit: Yes Status: Acute Assessment and Plan: Unclear etiology. Liver ultrasound performed on 09/24/2018 demonstrated hepatic steatosis and accidents of mild hepatomegaly. Patient was also noted to have a probable right renal cyst, with recommendation for follow-up ultrasound in 6 months versus additional characterization with contrast CT of the abdomen. LFTs continue to be high on laboratory studies; hepatitis panel ordered this morning was nonreactive. - Continue to repeat in trend LFTs. - Anticipate likely gastroenterology consult Thursday if LFTs continue to be elevated. (3) Hypothyroidism Current Visit: Yes Status: Acute Assessment and Plan: Patient noted to have significantly elevated TSH of 21.032. Subsequent free T4 laboratory study was significant for a low value of 0.14. - Continue Synthroid 88mcg daily. - Patient will require outpatient follow-up to ensure proper thyroid hormone dosing. (4) Abnormal EKG Current Visit: Yes Status: Acute Assessment and Plan: Patient reportedly had abnormal telemetry overnight, with concern for ST eleva tion. Per that note, EKG was ordered, with computer reading significant for junctional rhythm and slight ST elevation. Troponin drawn at that time was WNL. Review of overnight documentation is unremarkable, and patient does not appear to have had repeat cardiac abnormality. On evaluation this morning, patient continues to deny any chest pain, palpitations, shortness breath, or cardiac symptoms. - Continue telemetry monitoring. - Anticipate repeat EKG and troponin if patient begins to develop arrhythmia or symptoms concerning for cardiac involvement. (5) Elevated WBC count Current Visit: Yes Status: Resolved Assessment and Plan: Secondary to acute infection of right knee vs. reactive etiology. - Continue current empiric antibiotic therapy. - Repeat and trend CBC with morning laboratory studies. (6) Tobacco use Current Visit: Yes Status: Chronic Assessment and Plan: - Tobacco cessation counselling provided. - Nicotine patch PRN. (7) DVT prophylaxis Current Visit: Yes Status: Acute Assessment and Plan: - SCDs. - Time Spent with Patient Total time spent is greater than 50% in coordination of care (as documented) at patient's floor/unit and/or counseling patient: Internal Medicine: Result - Labs CBC & Chem 7: 09/25/18 01:15 09/25/18 01:15 Labs: Short CBC 09/25/18 Range/Units 01:15 WBC 10.7 (4.3-11.1) K/mcL Hgb 12.2 L (12.9-16.9) g/dL Hct 35.7 L (37.5-50.1) % Plt Count 490 H (140-400) K/mcL Neutrophils # 6.6 (1.6-8.9) K/mcL BMP 09/24/18 09/25/18 03:39 01:15 Sodium 133 L 136 Potassium 4.5 3.6 Chloride 99 101 Carbon Dioxide 28 27 BUN 11 13 Creatinine 0.73 0.90 Glucose 158 H 110 H Calcium 9.6 9.1 Cardiac Enzymes 09/24/18 Range/Units 03:39 Troponin I < 0.03 (< 0.04) ng/mL Liver Function 09/24/18 09/25/18 Range/Units 03:39 01:15 Total Bilirubin 0.6 0.5 (0.3-1.0) mg/dL Direct Bilirubin 0.3 H (0.0-0.2) mg/dL AST 40 H 101 H (13-39) Units/L ALT 100 H 143 H (7-52) Units/L Alkaline Phosphatase 225 H 241 H (34-104) Units/L Albumin 3.1 L 3.0 L (3.5-5.7) g/dL - ABG Interpretation ABG results: PT/INR, D-dimer PT 12.2 Seconds (9.4-12.1) H 09/22/18 07:17 - Impressions Impressions Liver Ultrasound 09/24/18 16:00 IMPRESSION: Nonvisualized pancreas. Hepatic steatosis. Evidence of mild hepatomegaly. Probable right renal cyst. Follow-up ultrasound in 6 months versus additional characterization with IV contrast enhanced CT abdomen is recommended. Otherwise unremarkable right upper quadrant ultrasound. D/ / Zane Guallpa / Zane Guallpa Interpreting Provider: Zane Guallpa Consult Discharge Plan - Plan Referrals: NONE,PCP [Primary Care Provider] - (3) Hypothyroidism Qualifiers: Hypothyroidism type: unspecified Qualified Code(s): E03.9 - Hypothyroidism, unspecified (5) Elevated WBC count Qualifiers: Leukocytosis type: unspecified Qualified Code(s): D72.829 - Elevated white blood cell count, unspecified
[2018-09-25] MEDS: Ascorbic Acid 500 MG TABLET PO SCH ×2 (10:01→17:56)
[2018-09-25] MEDS: Multivit/Ca/Min/Fe/FA 1 TAB TABLET PO SCH (10:01)
[2018-09-25] MEDS: cefTRIAXone 2,000 MG in Water for inj. (sterile) 20 ML 20 ML IVP SCH (10:02)
--- NOTE | 2018-09-25 10:50 | Electrocardiograph Report ---
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
--- NOTE | 2018-09-25 11:39 | Event Note ---
Date of Encounter: 09/25/18 Time of Encounter: 11:27 Patient was seen and examined. I agree with the progress note as written by the resident physician. No acute events. Afebrile. Patient admitted with right knee swelling and went to the OR for irrigation and debridement by orthopedics. Cultures are negative to date. He had arthrocentesis done at an outside facility prior to coming here with cultures there is still pending. He was put on IV vancomycin and ceftriaxone. Noted to have elevated liver function tests. liver US showed hepatic steatosis. Mention of a right renal cyst. Reports some nausea and vomiting with food prior to this. GEN: NAD CVS: RRR. S1, S2, No m/r/g RESP: CTAB ABD: Soft, NT, ND, +BS EXT: No edema. 2+ DP. No rashes. Dressing is clean and dry. NEURO: Nonfocal Continue IV vancomycin and Rocephin. Follow up on cultures and try to call [facility] see if cultures there have been finalized. LFTs worse. ??hepatic steatosis?? on US. Unsure if this is all. Check hepatitis panel. Stop percocet and place on only oxycodone Probably consult GI if continues to trend like this by Thursday. TSH elevated, T4 low. Started on levothyroxine
[2018-09-25] MEDS: *HR* OxyCODONE Immed Rel 5 MG TABLET PO PRN ×2 (11:49→19:54)
[2018-09-25 14:56] LABS: Hepatitis B Surface Antigen Nonreactive (Nonreactive)
[2018-09-25 15:25] LABS: Hepatitis B Core IgM Nonreactive (Nonreactive); Hepatitis C Virus Antibody Nonreactive (Nonreactive)
[2018-09-25 15:27] LABS: Hepatitis A Antibody IgM Nonreactive (Nonreactive)
[2018-09-26 03:59] LABS: Basophils # 0.1 K/mcL (0.0-0.2); Basophils % 0.4 %; Eosinophils # 0.1 K/mcL (0.0-0.6); Eosinophils % 0.8 %; Hematocrit 38.1 % (37.5-50.1); Hemoglobin 12.9 g/dL (12.9-16.9); Immature Granulocytes % 0.5 % (0-4); Lymphocytes # 2.4 K/mcL (0.6-4.6); Mean Corpuscular HGB Conc 33.9 g/dL (31.6-35.5); Mean Corpuscular Hemoglobin 32.9 pg (28.0-33.3); Mean Corpuscular Volume 97.2 fL (83.0-100.0); Mean Platelet Volume 8.2 fL (9.4-12.4); Monocytes # 1.6 K/mcL (0.0-1.3); Platelet Count 547 K/mcL (140-400); Red Blood Count 3.92 M/mcL (4.19-5.50); Red Cell Distribution Width 13.3 % (11.5-14.5); Segmented Neutrophils % 68.3 %
[2018-09-26 04:19] LABS: Alanine Aminotransferase 146 Units/L (7-52); Alkaline Phosphatase 291 Units/L (34-104); Aspartate Amino Transferase 74 Units/L (13-39); BUN/Creatinine Ratio 15 (6-26); Bilirubin,Total 0.6 mg/dL (0.3-1.0); Blood Urea Nitrogen 12 mg/dL (6-20); Calcium 9.6 mg/dL (8.6-10.3); Carbon Dioxide 25 mEq/L (23-29); Chloride 99 mEq/L (98-107); Glucose 138 mg/dL (70-105); Osmolality,Calculated 278 (280-300); Potassium 3.9 mEq/L (3.5-5.1); Sodium 133 mEq/L (136-145); Total Protein 6.8 g/dL (6.4-8.9); eGFR For Non-African Americans > 60 (> 60)
[2018-09-26 04:24] LABS: Albumin 3.2 g/dL (3.5-5.7); Albumin/Globulin Ratio 0.9 (1.1-2.2); Globulin 3.6 g/dL (2.4-3.5)
[2018-09-26] MEDS: *HR* OxyCODONE Immed Rel 5 MG TABLET PO PRN ×3 (05:36→20:34)
[2018-09-26] MEDS ORDERED: Aminoglycoside Consult 1 EACH MC ONE (07:34)
[2018-09-26] MEDS: cefTRIAXone 2,000 MG in Water for inj. (sterile) 20 ML 20 ML IVP SCH (07:40)
[2018-09-26] MEDS: Ascorbic Acid 500 MG TABLET PO SCH ×2 (07:40→17:31)
[2018-09-26] MEDS: Multivit/Ca/Min/Fe/FA 1 TAB TABLET PO SCH (07:40)
--- NOTE | 2018-09-26 08:23 | Internal Med Progress Note ---
Hospitalist Progress Note - Encounter Date of Encounter: 09/26/18 Time of Encounter: 08:23 - Subjective Interval History: Patient seen and evaluated at the bedside. He does report some pain in his right knee; however, he states that he has just completed physical therapy. He denies any fevers, chills, or acute concerns at this time. Nursing staff reports no significant overnight events. - Exam Vitals: Temp Pulse Resp BP Pulse Ox 98.5 F 101 16 134/73 95 09/26/18 06:40 09/26/18 06:40 09/26/18 06:40 09/26/18 06:40 09/26/18 06:40 Exam: GENERAL: Well-developed, well-nourished, adult male in no acute distress. HEENT: Atraumatic and normocephalic. CARDIOVASCULAR: Regular rate and rhythm. S1 and S2 present. No murmurs, gallops, or rubs. RESPIRATORY: Clear to auscultation bilaterally. Chest rises and falls symmetrically with respiration. No accessory muscle use noted. GASTROINTESTINAL: Abdomen is soft, nontender, nondistended. EXTREMITIES: No clubbing, cyanosis, or edema present. SKIN: Warm, dry, and intact. Right knee is wrapped in surgical dressings, with no apparent edema. NEUROLOGIC: Alert and oriented x3. Patient is cooperative with exam and answers questions appropriately. No apparent focal deficits present. PSYCHIATRIC: Appropriate mood and affect. - Assessment and Plan (1) Effusion, right knee Current Visit: Yes Status: Acute Assessment and Plan: Uncertain etiology - septic arthritis vs. pseudogout vs. inflammatory response. Arthrocentesis was performed at outside facility prior to hospital transfer, with appropriate microbiology studies. Arthroscopy and joint washout was performed on 09/23/[address] Metcalf. Since that procedure, patient has had significant improvement in the pain. Cultures thus far have remained negative. - Discontinue IV antibiotics. Start Bactrim Ds BID. - Follow up for final microbiology results. - Appreciate ongoing recommendations from orthopedic surgery. (2) Elevated LFTs Current Visit: Yes Status: Acute Assessment and Plan: Unclear etiology. Liver ultrasound performed on 09/24/2018 demonstrated hepatic steatosis and accidents of mild hepatomegaly. Patient was also noted to have a probable right renal cyst, with recommendation for follow-up ultrasound in 6 months versus additional characterization with contrast CT of the abdomen. LFTs continue to be high on laboratory studies; hepatitis panel ordered this morning was nonreactive. - Continue to repeat in trend LFTs. - Inpatient consultation gastroenterology for evaluation and recommendations. (3) Hypothyroidism Current Visit: Yes Status: Acute Assessment and Plan: Patient noted to have significantly elevated TSH of 21.032. Subsequent free T4 laboratory study was significant for a low value of 0.14. - Continue Synthroid 88mcg daily. - Patient will require outpatient follow-up to ensure proper thyroid hormone dosing. (4) Abnormal EKG Current Visit: Yes Status: Acute Assessment and Plan: Patient reportedly had abnormal telemetry overnight, with concern for ST elevation. Per that note, EKG was ordered, with computer reading significant for junctional rhythm and slight ST elevation. Troponin drawn at that time was WNL. Review of overnight documentation is unremarkable, and patient does not appear to have had repeat cardiac abnormality. On evaluation this morning, patient continues to deny any chest pain, palpitations, shortness breath, or cardiac symptoms. - Continue telemetry monitoring. - Anticipate repeat EKG and troponin if patient begins to develop arrhythmia or symptoms concerning for cardiac involvement. (5) Tobacco use Current Visit: Yes Status: Chronic Assessment and Plan: - Tobacco cessation counselling provided. - Nicotine patch PRN. (6) DVT prophylaxis Current Visit: Yes Status: Acute Assessment and Plan: - SCDs. - Time Spent with Patient Total time spent is greater than 50% in coordination of care (as documented) at patient's floor/unit and/or counseling patient: Internal Medicine: Result - Labs CBC & Chem 7: 09/26/18 03:29 09/26/18 03:29 Labs: Short CBC 09/26/18 Range/Units 03:29 WBC 13.1 H (4.3-11.1) K/mcL Hgb 12.9 (12.9-16.9) g/dL Hct 38.1 (37.5-50.1) % Plt Count 547 H (140-400) K/mcL Neutrophils # 9.0 H (1.6-8.9) K/mcL BMP 09/26/18 03:29 Sodium 133 L Potassium 3.9 Chloride 99 Carbon Dioxide 25 BUN 12 Creatinine 0.79 Glucose 138 H Calcium 9.6 Liver Function 09/26/18 Range/Units 03:29 Total Bilirubin 0.6 (0.3-1.0) mg/dL AST 74 H (13-39) Units/L ALT 146 H (7-52) Units/L Alkaline Phosphatase 291 H (34-104) Units/L Albumin 3.2 L (3.5-5.7) g/dL - ABG Interpretation ABG results: PT/INR, D-dimer PT 12.2 Seconds (9.4-12.1) H 09/22/18 07:17 Consult Discharge Plan - Plan Referrals: NONE,PCP [Primary Care Provider] - (3) Hypothyroidism Qualifiers: Hypothyroidism type: unspecified Qualified Code(s): E03.9 - Hypothyroidism, unspecified
--- NOTE | 2018-09-26 09:42 | Event Note ---
Date of Encounter: 09/26/18 Time of Encounter: 09:40 Patient was seen and examined. I agree with the progress note as written by the resident physician. No acute events. Afebrile. Patient admitted with right knee swelling and went to the OR for irrigation and debridement by orthopedics. Cultures are negative to date. He had arthrocentesis done at an outside facility prior to coming here with cultures there is still pending. He was put on IV vancomycin and ceftriaxone. Noted to have elevated liver function tests. liver US showed hepatic steatosis. Mention of a right renal cyst. Reports some nausea and vomiting with food prior to this. GEN: NAD CVS: RRR. S1, S2, No m/r/g RESP: CTAB ABD: Soft, NT, ND, +BS EXT: No edema. 2+ DP. No rashes. Dressing is clean and dry. NEURO: Nonfocal can stop abx and put on oral Bactrim. cultures negative reportedly from outside and here. LFTs still elevated ??hepatic steatosis?? on US. Unsure if this is all. consult GI hepatitis panel negative TSH elevated, T4 low. Started on levothyroxine
[2018-09-26] MEDS: Acetaminophen 325 MG TABLET PO PRN ×2 (11:03→17:31)
[2018-09-26] MEDS: Sulfamethoxazole/Trimeth DS 1 EACH TABLET PO SCH (20:34)
[2018-09-26] MEDS: Temazepam 15 MG CAPSULE PO PRN (22:47)
--- NOTE | 2018-09-26 23:16 | Orthopedics Progress Note ---
Date of Encounter: 09/26/18 Time of Encounter: 23:16 Subjective Principal diagnosis: Septic right knee, status post I&D right knee Interval history: Patient without complaints. Afebrile vital signs stable. Dressing is clean dry and intact. He is neurovascularly intact with regard to his bilateral lower extremities. Continues on intravenous antibiotics per hospitalist and infectious disease services. Cultures negative to date. Objective Vital signs: Vital Signs Temp Pulse Resp BP Pulse Ox 09/26/18 22:46 98.7 F 100 16 171/96 97 09/26/18 19:08 98.2 F 104 16 153/90 96 09/26/18 14:38 98.5 F 87 16 134/76 97 09/26/18 10:28 98.3 F 92 16 129/78 96 09/26/18 06:40 98.5 F 101 16 134/73 95 09/26/18 04:36 98.7 F 103 18 132/78 94 09/25/18 23:49 99.5 F 102 18 145/84 94 Intake and Output 09/26/18 09/26/18 09/26/18 07:59 15:59 23:59 Intake Total 500 / 500 350 / 350 550 / 550 Output Total 1300 / 1300 450 / 450 1550 / 1550 Balance -800 / -800 -100 / -100 -1000 / -1000 Intake: IV Fluids 250 / 250 250 / 250 Vancocin 1,250 MG In 0.9 % 250 / 250 250 / 250 Sodium Chloride 250 ML @ 167 mls/hr IVPB Q12H [facility] Rx#: [id number] Oral 250 / 250 350 / 350 300 / 300 Output: Urine 1300 / 1300 450 / 450 1550 / 1550 Other: Meal Breakfast Percent of Meal Consumed 80% Weight 78.6 kg Patient Weight 09/26/18 23:59 Weight 78.6 kg - Labs CBC & BMP: 09/26/18 03:29 09/26/18 03:29 Labs: Abnormal lab results WBC 13.1 K/mcL (4.3-11.1) H 09/26/18 03:29 RBC 3.92 M/mcL (4.19-5.50) L 09/26/18 03:29 Plt Count 547 K/mcL (140-400) H 09/26/18 03:29 MPV 8.2 fL (9.4-12.4) L 09/26/18 03:29 Neutrophils # 9.0 K/mcL (1.6-8.9) H 09/26/18 03:29 Monocytes # 1.6 K/mcL (0.0-1.3) H 09/26/18 03:29 PT 12.2 Seconds (9.4-12.1) H 09/22/18 07:17 Sodium 133 mEq/L (136-145) L 09/26/18 03:29 Glucose 138 mg/dL (70-105) H 09/26/18 03:29 Calculated Osmolality 278 (280-300) L 09/26/18 03:29 Direct Bilirubin 0.3 mg/dL (0.0-0.2) H 09/24/18 03:39 AST 74 Units/L (13-39) H 09/26/18 03:29 ALT 146 Units/L (7-52) H 09/26/18 03:29 Alkaline Phosphatase 291 Units/L (34-104) H 09/26/18 03:29 Albumin 3.2 g/dL (3.5-5.7) L 09/26/18 03:29 Globulin 3.6 g/dL (2.4-3.5) H 09/26/18 03:29 Albumin/Globulin Ratio 0.9 (1.1-2.2) L 09/26/18 03:29 TSH 21.032 mcIU/mL (0.340-5.600) H 09/24/18 09:11 Free T4 0.41 ng/dl (0.70-2.00) L 09/24/18 03:39 Vancomycin Trough 14 mcg/mL (5-10) H 09/25/18 16:47 Consult Discharge Plan - Plan Referrals: NONE,PCP [Primary Care Provider] -
--- NOTE | 2018-09-26 23:16 | Orthopedics Progress Note ---
Date of Encounter: 09/25/18 Time of Encounter: 09:05 Subjective Principal diagnosis: Septic right knee, status post I&D right knee Interval history: Patient without complaints. Afebrile vital signs stable. Dressing is clean dry and intact. He is neurovascularly intact with regard to his bilateral lower extremities. Continues on intravenous antibiotics per hospitalist and infectious disease services. Objective Vital signs: Vital Signs Temp Pulse Resp BP Pulse Ox 09/26/18 22:46 98.7 F 100 16 171/96 97 09/26/18 19:08 98.2 F 104 16 153/90 96 09/26/18 14:38 98.5 F 87 16 134/76 97 09/26/18 10:28 98.3 F 92 16 129/78 96 09/26/18 06:40 98.5 F 101 16 134/73 95 09/26/18 04:36 98.7 F 103 18 132/78 94 09/25/18 23:49 99.5 F 102 18 145/84 94 Intake and Output 09/26/18 09/26/18 09/26/18 07:59 15:59 23:59 Intake Total 500 / 500 350 / 350 550 / 550 Output Total 1300 / 1300 450 / 450 1550 / 1550 Balance -800 / -800 -100 / -100 -1000 / -1000 Intake: IV Fluids 250 / 250 250 / 250 Vancocin 1,250 MG In 0.9 % 250 / 250 250 / 250 Sodium Chloride 250 ML @ 167 mls/hr IVPB Q12H [facility] Rx#: [id number] Oral 250 / 250 350 / 350 300 / 300 Output: Urine 1300 / 1300 450 / 450 1550 / 1550 Other: Meal Breakfast Percent of Meal Consumed 80% Weight 78.6 kg Patient Weight 09/26/18 23:59 Weight 78.6 kg - Labs CBC & BMP: 09/26/18 03:29 09/26/18 03:29 Labs: Abnormal lab results WBC 13.1 K/mcL (4.3-11.1) H 09/26/18 03:29 RBC 3.92 M/mcL (4.19-5.50) L 09/26/18 03:29 Plt Count 547 K/mcL (140-400) H 09/26/18 03:29 MPV 8.2 fL (9.4-12.4) L 09/26/18 03:29 Neutrophils # 9.0 K/mcL (1.6-8.9) H 09/26/18 03:29 Monocytes # 1.6 K/mcL (0.0-1.3) H 09/26/18 03:29 PT 12.2 Seconds (9.4-12.1) H 09/22/18 07:17 Sodium 133 mEq/L (136-145) L 09/26/18 03:29 Glucose 138 mg/dL (70-105) H 09/26/18 03:29 Calculated Osmolality 278 (280-300) L 09/26/18 03:29 Direct Bilirubin 0.3 mg/dL (0.0-0.2) H 09/24/18 03:39 AST 74 Units/L (13-39) H 09/26/18 03:29 ALT 146 Units/L (7-52) H 09/26/18 03:29 Alkaline Phosphatase 291 Units/L (34-104) H 09/26/18 03:29 Albumin 3.2 g/dL (3.5-5.7) L 09/26/18 03:29 Globulin 3.6 g/dL (2.4-3.5) H 09/26/18 03:29 Albumin/Globulin Ratio 0.9 (1.1-2.2) L 09/26/18 03:29 TSH 21.032 mcIU/mL (0.340-5.600) H 09/24/18 09:11 Free T4 0.41 ng/dl (0.70-2.00) L 09/24/18 03:39 Vancomycin Trough 14 mcg/mL (5-10) H 09/25/18 16:47 Consult Discharge Plan - Plan Referrals: NONE,PCP [Primary Care Provider] -
[2018-09-27] MEDS: *HR* OxyCODONE Immed Rel 5 MG TABLET PO PRN ×3 (05:31→20:10)
[2018-09-27 07:26] LABS: Basophils # 0.1 K/mcL (0.0-0.2); Basophils % 0.3 %; Eosinophils # 0.1 K/mcL (0.0-0.6); Eosinophils % 0.4 %; Hematocrit 38.4 % (37.5-50.1); Hemoglobin 12.9 g/dL (12.9-16.9); Immature Granulocytes % 0.8 % (0-4); Lymphocytes % 12.6 %; Mean Corpuscular HGB Conc 33.6 g/dL (31.6-35.5); Mean Corpuscular Hemoglobin 32.7 pg (28.0-33.3); Mean Corpuscular Volume 97.2 fL (83.0-100.0); Mean Platelet Volume 8.3 fL (9.4-12.4); Monocytes % 12.6 %; Neutrophils # 11.6 K/mcL (1.6-8.9); Platelet Count 580 K/mcL (140-400); Red Blood Count 3.95 M/mcL (4.19-5.50); Red Cell Distribution Width 13.1 % (11.5-14.5); Segmented Neutrophils % 73.3 %
[2018-09-27 07:47] LABS: Alanine Aminotransferase 262 Units/L (7-52); Albumin 3.2 g/dL (3.5-5.7); Albumin/Globulin Ratio 0.9 (1.1-2.2); Alkaline Phosphatase 338 Units/L (34-104); Aspartate Amino Transferase 140 Units/L (13-39); BUN/Creatinine Ratio 13 (6-26); Bilirubin,Total 0.9 mg/dL (0.3-1.0); Blood Urea Nitrogen 9 mg/dL (6-20); Calcium 9.5 mg/dL (8.6-10.3); Carbon Dioxide 26 mEq/L (23-29); Chloride 97 mEq/L (98-107); Globulin 3.7 g/dL (2.4-3.5); Glucose 141 mg/dL (70-105); Osmolality,Calculated 273 (280-300); Potassium 4.1 mEq/L (3.5-5.1); Sodium 131 mEq/L (136-145); Total Protein 6.9 g/dL (6.4-8.9); eGFR For Non-African Americans > 60 (> 60)
--- NOTE | 2018-09-27 07:55 | Orthopedics Progress Note ---
Date of Encounter: 09/27/18 Time of Encounter: 07:54 Subjective Principal diagnosis: Septic right knee, status post I&D right knee Interval history: Patient was seen this morning doing well without complaints. Afebrile vital signs stable. Operative extremity: Neurovascularly intact Wounds clean dry and intact Calves nontender limited motion Assessment and plan: Continue with postoperative care Cultures no growth, we will follow up with cultures taken prior. Objective Vital signs: Vital Signs Temp Pulse Resp BP Pulse Ox 09/27/18 07:13 98.3 F 101 17 115/72 95 09/27/18 03:14 149/81 09/26/18 22:46 98.7 F 100 16 171/96 97 09/26/18 19:08 98.2 F 104 16 153/90 96 09/26/18 14:38 98.5 F 87 16 134/76 97 09/26/18 10:28 98.3 F 92 16 129/78 96 Intake and Output 09/26/18 09/26/18 09/27/18 15:59 23:59 07:59 Intake Total 350 / 350 550 / 550 600 / 600 Output Total 450 / 450 1550 / 1550 500 / 500 Balance -100 / -100 -1000 / -1000 100 / 100 Intake: IV Fluids 250 / 250 Vancocin 1,250 MG In 0.9 % 250 / 250 Sodium Chloride 250 ML @ 167 mls/hr IVPB Q12H [facility] Rx#: [id number] Oral 350 / 350 300 / 300 600 / 600 Output: Urine 450 / 450 1550 / 1550 500 / 500 Other: Meal Breakfast Percent of Meal Consumed 80% - Labs CBC & BMP: 09/27/18 06:11 09/27/18 06:11 Labs: Abnormal lab results WBC 15.8 K/mcL (4.3-11.1) H 09/27/18 06:11 RBC 3.95 M/mcL (4.19-5.50) L 09/27/18 06:11 Plt Count 580 K/mcL (140-400) H 09/27/18 06:11 MPV 8.3 fL (9.4-12.4) L 09/27/18 06:11 Neutrophils # 11.6 K/mcL (1.6-8.9) H 09/27/18 06:11 Monocytes # 2.0 K/mcL (0.0-1.3) H 09/27/18 06:11 PT 12.2 Seconds (9.4-12.1) H 09/22/18 07:17 Sodium 131 mEq/L (136-145) L 09/27/18 06:11 Chloride 97 mEq/L (98-107) L 09/27/18 06:11 Glucose 141 mg/dL (70-105) H 09/27/18 06:11 Calculated Osmolality 273 (280-300) L 09/27/18 06:11 Direct Bilirubin 0.3 mg/dL (0.0-0.2) H 09/24/18 03:39 AST 140 Units/L (13-39) H 09/27/18 06:11 ALT 262 Units/L (7-52) H 09/27/18 06:11 Alkaline Phosphatase 338 Units/L (34-104) H 09/27/18 06:11 Albumin 3.2 g/dL (3.5-5.7) L 09/27/18 06:11 Globulin 3.7 g/dL (2.4-3.5) H 09/27/18 06:11 Albumin/Globulin Ratio 0.9 (1.1-2.2) L 09/27/18 06:11 TSH 21.032 mcIU/mL (0.340-5.600) H 09/24/18 09:11 Free T4 0.41 ng/dl (0.70-2.00) L 09/24/18 03:39 Vancomycin Trough 14 mcg/mL (5-10) H 09/25/18 16:47 Consult Discharge Plan - Plan Referrals: NONE,PCP [Primary Care Provider] -
--- NOTE | 2018-09-27 08:03 | Internal Med Progress Note ---
Hospitalist Progress Note - Encounter Date of Encounter: 09/27/18 Time of Encounter: 08:03 - Subjective Interval History: Mr. Childress was seen and evaluated at the bedside. He denies any ongoingdiscomfort, and reports that his pain has been well controlled with PO pain medications. He has been doing well with physical therapy, and denies any concerns at this time. Nursing staff reports no acute overnight events. - Exam Vitals: Temp Pulse Resp BP Pulse Ox 98.3 F 101 17 115/72 95 09/27/18 07:13 09/27/18 07:13 09/27/18 07:13 09/27/18 07:13 09/27/18 07:13 Exam: GENERAL: well-developed, well-nourished adult male in no acute distress. HEENT: Atraumatic and normocephalic. CARDIOVASCULAR: Regular rate and rhythm. S1 and S2 present. No murmurs, gallops, or rubs. RESPIRATORY: Clear to auscultation bilaterally. Chest rises and falls symmetrically without accessory muscle use. GASTROINTESTINAL: Abdomen is soft, nontender, nondistended. EXTREMITIES: No clubbing, cyanosis, or edema. mild bruising present around the right knee secondary to recent arthroscopy. SKIN: Warm, dry, and intact. NEUROLOGIC: Alert and oriented x3. Patient is cooperative with exam and answers questions appropriately. No apparent focal deficits. PSYCHIATRIC: Appropriate mood and affect. - Assessment and Plan (1) Effusion, right knee Current Visit: Yes Status: Acute Assessment and Plan: Uncertain etiology - septic arthritis vs. pseudogout vs. inflammatory response. Arthrocentesis was performed at outside facility prior to hospital transfer, with appropriate microbiology studies. Arthroscopy and joint washout was performed on 09/23/[address] Metcalf. Since that procedure, patient has had significant improvement in the pain. Cultures thus far have remained negative. - Discontinue antibiotics per infectious disease recommendations. Continue to monitor closely for signs and symptoms of ongoing infection. - Follow up for final microbiology results. (2) Elevated WBC count Current Visit: Yes Status: Acute Assessment and Plan: Patient noted to have slowly upward trending leukocytosis of the last several days. He remains afebrile - Appreciate infectious diseases input and recommendations regarding this problem. (3) Elevated LFTs Current Visit: Yes Status: Acute Assessment and Plan: Unclear etiology. Liver ultrasound performed on 09/24/2018 demonstrated hepatic steatosis and accidents of mild hepatomegaly. Patient was also noted to have a probable right renal cyst, with recommendation for follow-up ultrasound in 6 months versus additional characterization with contrast CT of the abdomen. LFTs continue to be high on laboratory studies; hepatitis panel was nonreactive. - Continue to repeat in trend LFTs. - Inpatient consultation placed to gastroenterology. Awaiting recommendations. (4) Hypothyroidism Current Visit: Yes Status: Acute Assessment and Plan: Patient noted to have significantly elevated TSH of 21.032. Subsequent free T4 laboratory study was significant for a low value of 0.14. - Continue Synthroid 88mcg daily. - Patient will require outpatient follow-up to ensure proper thyroid hormone dosing. (5) Abnormal EKG Current Visit: Yes Status: Acute Assessment and Plan: Patient reportedly had abnormal telemetry overnight, with concern for ST e levation. Per that note, EKG was ordered, with computer reading significant for junctional rhythm and slight ST elevation. Troponin drawn at that time was WNL. Review of overnight documentation is unremarkable, and patient does not appear to have had repeat cardiac abnormality. On evaluation this morning, patient continues to deny any chest pain, palpitations, shortness breath, or cardiac symptoms. - Continue telemetry monitoring. - Anticipate repeat EKG and troponin if patient begins to develop arrhythmia or symptoms concerning for cardiac involvement. (6) Tobacco use Current Visit: Yes Status: Chronic Assessment and Plan: - Tobacco cessation counselling provided. - Nicotine patch PRN. (7) DVT prophylaxis Current Visit: Yes Status: Acute Assessment and Plan: - SCDs. - Time Spent with Patient Total time spent is greater than 50% in coordination of care (as documented) at patient's floor/unit and/or counseling patient: Internal Medicine: Result - Labs CBC & Chem 7: 09/27/18 06:11 09/27/18 06:11 Labs: Short CBC 09/27/18 Range/Units 06:11 WBC 15.8 H (4.3-11.1) K/mcL Hgb 12.9 (12.9-16.9) g/dL Hct 38.4 (37.5-50.1) % Plt Count 580 H (140-400) K/mcL Neutrophils # 11.6 H (1.6-8.9) K/mcL BMP 09/27/18 06:11 Sodium 131 L Potassium 4.1 Chloride 97 L Carbon Dioxide 26 BUN 9 Creatinine 0.70 Glucose 141 H Calcium 9.5 Liver Function 09/27/18 Range/Units 06:11 Total Bilirubin 0.9 (0.3-1.0) mg/dL AST 140 H (13-39) Units/L ALT 262 H (7-52) Units/L Alkaline Phosphatase 338 H (34-104) Units/L Albumin 3.2 L (3.5-5.7) g/dL - ABG Interpretation ABG results: PT/INR, D-dimer PT 12.2 Seconds (9.4-12.1) H 09/22/18 07:17 Consult Discharge Plan - Plan Referrals: NONE,PCP [Primary Care Provider] - (2) Elevated WBC count Qualifiers: Leukocytosis type: unspecified Qualified Code(s): D72.829 - Elevated white blood cell count, unspecified (4) Hypothyroidism Qualifiers: Hypothyroidism type: unspecified Qualified Code(s): E03.9 - Hypothyroidism, unspecified
--- NOTE | 2018-09-27 08:36 | Event Note ---
Date of Encounter: 09/27/18 Time of Encounter: 08:34 Patient was seen and examined. I agree with the progress note as written by the resident physician. No acute events. Afebrile. Leukocytosis is worsening. Patient admitted with right knee swelling and went to the OR for irrigation and debridement by orthopedics. Cultures are negative to date. He had arthrocentesis done at an outside facility prior to coming here with cultures there reportedly negative. He was put on IV vancomycin and ceftriaxone. Switched to Bactrim 09/26 and remains on IV ceftriaxone. Noted to have elevated liver function tests. liver US showed hepatic steatosis. Mention of a right renal cyst. Reports some nausea and vomiting with food prior to this. GEN: NAD CVS: RRR. S1, S2, No m/r/g RESP: CTAB ABD: Soft, NT, ND, +BS EXT: No edema. 2+ DP. No rashes. Dressing is clean and dry. NEURO: Nonfocal On Bactrim. Leukocytosis is worsening. Received Vanco/ceftriaxone today. Consult ID to help with abx and leukocytosis cultures negative reportedly from outside and here. LFTs still elevated and worsening ??hepatic steatosis?? on US. Unsure if this is all. f/u on GI recs hepatitis panel negative TSH elevated, T4 low. Started on levothyroxine
[2018-09-27] MEDS: Multivit/Ca/Min/Fe/FA 1 TAB TABLET PO SCH (09:22)
[2018-09-27] MEDS: Sulfamethoxazole/Trimeth DS 1 EACH TABLET PO SCH (09:22)
[2018-09-27] MEDS: Ascorbic Acid 500 MG TABLET PO SCH ×2 (09:22→16:48)
--- NOTE | 2018-09-27 10:31 | Infectious Disease Consult ---
Infectious Disease-Consult - Encounter Date/Time Date of Encounter: 09/27/18 Time of Encounter: 10:25 - Data of Consult Patient: new to practice Reason for consult: Leukocytosis status post right knee irrigation and debridement Consult date: 09/27/18 Requesting Physician: Jared Fermin Primary Care Provider: PCP NONE - HPI HPI: Mr. Childress is a 58 year old male with no significant medical history. The prabhu santos was admitted to the hospital 09/21/18 for right knee effusion. We are consulted for for further workup and treatment recommendations for leukocytosis status post right knee irrigation and debridement. Briefly, the patient is a 58-year-old male with a past medical history as stated above. The patient presented to [facility] with complaints of right knee swelling and pain with associated fevers and chills. Upon arrival, he was afebrile. He was tachycardic, but otherwise hemodynamically stable. He had leukocytosis with neutrophilic predominance. Renal function was normal. LFTs were mildly elevated. He had an x-ray of the left femur that was negative. 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 He underwent a bedside arthrocentesis that showed 10,000 red blood cells, total neutrophil count of 72,670 with 86% segmented neutrophils. The culture is negative and the Gram stain showed few gram-positive rods. Due to concern for septic arthritis, the patient was given a dose of clindamycin and vancomycin and transferred here for further evaluation. Upon arrival here, the patient had a fever with a MAXIMUM TEMPERATURE of 100.4. He was initially started on IV vancomycin and Rocephin. He was evaluated by orthopedics who took the patient to the OR for and performed a right knee arthroscopic irrigation and debridement. Cultures and Gram stain are negative. Due to the patient's elevated LFTs, he underwent a liver ultrasound that showed hepatic steatosis and a probable right renal cyst. His leukocytosis has resolved. He redeveloped tachycardia yesterday. His LFTs remained abnormal. Today, his white blood cell count is up to 15,000 with 12% monocytes. He was transitioned to oral Bactrim for. GI consult is pending. We have been asked to evaluate and make further recommendations. During my exam today, the patient states that last Thursday he developed some nausea with vomiting and Thursday he woke up with severe pain and swelling in the right knee. He denies any known trauma. States the knee was not particularly red or warm to touch at that time. Denies any fevers or chills or rigors. Denies chest pain, shortness of breath, or cough. Denies abdominal pain or urinary complaints. Denies any oral thrush or new skin lesions. States the knee feels better and is much less swollen. States his appetite is good and he has been tolerating a regular diet. States he has not been sexually active since May and denies any history of sexually transmitted diseases. The patient lives at home alone. 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 He smokes about a pack of cigarettes per day. Denies any illicit drug use currently or in the past. States he will have 1-2 beers on the weekends, but denies drinking alcohol daily. Denies chronic infectious diseases. Denies any recent travel. Denies any prolonged exposure to water. - ROS Review of Systems: All systems reviewed and no additional remarkable complaints except as stated. - Results CBC & Chem 7: 09/29/18 06:06 09/29/18 06:06 - Exam Vitals: Temp Pulse Resp BP Pulse Ox 98.3 F 101 17 115/72 95 09/27/18 07:13 09/27/18 07:13 09/27/18 07:13 09/27/18 07:13 09/27/18 07:13 Exam: Head: Atraumatic, normal inspection, normocephalic. Eye: EOMI, PERRLA, no scleral icterus noted. ENT: Mucous membranes moist. No odontogenic infection noted. Poor dentition noted. Neck: Normal inspection, no meningismus. Respiratory: Clear to auscultation. No rales, respiratory distress, rhonchi, or wheezes noted. Cardiovascular: Regular rate and rhythm, S1 and S2 audible. No murmurs, rubs, or gallops. GI: Soft, nondistended, normal bowel sounds. Extremities: Mild edema noted to the right knee. Mild erythema and warmth noted. Mild tenderness noted on palpation. Range of motion diminished due to pain and swelling. Stab incision sites noted with Steri-Strips intact. No drainage noted. Back: Normal inspection. No vertebral tenderness noted. Neurological: Alert, oriented 3, no focal deficits. Psychiatric: normal affect, normal mood. Skin: Dry, intact, warm. Normal color. No rashes. RX: Docusate [Colace] 100 mg PO BID #60 capsule 09/29/18 [Rx] RX: Levothyroxine [Synthroid] 88 mcg PO DAILY@0630 #30 tablet 09/29/18 [Rx] RX: OxyCODONE Immed Rel [Roxicodone 5 MG] 5 mg PO Q6HR PRN 2 Days #8 tablet 09/29/18 [Rx] Allergy/AdvReac Type Severity Reaction Status Date / Time No Known Allergies Allergy Verified 09/21/18 19:36 - Assessment and Plan (1) Sepsis Status: Acute The patient had 2 sepsis criteria on admission and developed fever after arrival. Etiology: Unclear. Initially felt to be secondary to septic arthritis of the right knee, but cultures and Gram stain are negative. Review developed leukocytosis and tachycardia yesterday. Etiology: Unclear. Blood cultures drawn at [facility] 09/21/18 are negative 2 sets. Qualifiers: Sepsis type: sepsis due to unspecified organism Qualified Code(s): A41.9 - Sepsis, unspecified organism SNOMED Code(s): 82655391 (2) Elevated WBC count Status: Acute Etiology: Unclear. Consider noninfectious sources. Initially resolved, but redeveloped yesterday. Noted to have 12% monocytes. Review of systems essentially negative. Elevated LFTs noted, but not sure that these are related. Qualifiers: Leukocytosis type: unspecified Qualified Code(s): D72.829 - Elevated white blood cell count, unspecified SNOMED Code(s): 692831120, 927197441 (3) Effusion, right knee Status: Acute X-ray of the right knee showed a nonspecific joint effusion. Status post arthrocentesis at [facility]. 10,000 RBCs noted with TMC 72,670 with 86% segmented neutrophils. Gram stain showed few gram- positive rods, but the culture was negative. Orthopedics consult. Status post right knee arthroscopic irrigation and debridement. Intraoperative cultures and Gram stain were negative. Received vancomycin and Rocephin. Currently on oral Bactrim. SNOMED Code(s): 008223824 (4) Elevated LFTs Status: Acute Etiology: Unclear. Liver ultrasound showed hepatic steatosis and probable right renal cyst. GI consult pending. SNOMED Code(s): 640439052, 453000130 - Recommendations Recommendations: Knee cultures negative x 2. Consider rheumatology to evaluate. Recommend stopping all antibiotics and observe closely for s/s of infection. Should the patient take a turn to the worse of develop sepsis-like picture, recommend repeating cultures and re-starting broad-spectrum antibiotics. Past Med Surg Social Fam HX - Past Medical History Medical history: other (denies any diagnosis) Psychiatric history: no psych history - Past Surgical History Surgical History: other Additional surgical history: growth taken off of right testicle when patient was 23 - Social History Smoking Status: Current every day smoker Packs per day: 1 pack per day for the past 30 years Alcohol use: occasionally Drug use: none - Family History Mother Hx Family Endocrine Disorder: Yes (diabetes) Consult Discharge Plan - Plan Additional Instructions: Follow up with your PCP in 3-5 days for reevaluation. Have repeat laboratory studies drawn on 10/04/2018. Continue taking levothyroxine daily. You will need repeat TSH drawn in approximately 6 weeks. Take oxycodone 5mg as needed for severe pain. You can take OTC ibuprofen as needed, but do not take tylenol. Return to the emergency department if you develop fevers, chills, worsening pain/swelling of your knee, or if any concerns arise. [facility]errals: [facility]Outside] - 10/06/18 1:00 pm Carolyn Maldonado PAC [Physician Health Occupations Teacher] - 10/01/18 8:45 am NONE,PCP [Primary Care Provider] - Prescriptions: RX: OxyCODONE Immed Rel [Roxicodone 5 MG] 5 mg PO Q6HR PRN 2 Days #8 tablet PRN Reason: Moderate Pain RX: Docusate [Colace] 100 mg PO BID #60 capsule RX: Levothyroxine [Synthroid] 88 mcg PO DAILY@0630 #30 tablet - Attending Attestation I have personally performed a face to face evaluation on this patient. I have reviewed and agree with the care plan. History and Exam by me shows: Patient is a 58 year old gentleman with acute pain and swelling in the right knee. etiology not clear. symptoms started suddenly. denies any trauma. work up reveals fluid analysis 10,000 RBCs noted with TMC 72,670 with 86% segmented neutrophils. Gram stain showed few gram-positive rods, but the culture was negative. washout was also done and it was negative for cultures A/P: sepsis knee effusion - etiology not clear. infectious vs inflammatory vs other? elevated LFT's REcommendations: at this point no obvious infection. await cultures to finalize
--- NOTE | 2018-09-27 15:34 | Anesthesia Evaluation PreOp ---
Date of Encounter: 09/27/18 - Past History Planned Operation: PEG Tube Placement Cardiac History: Denies any Significant Hx Pulmonary History: Smoker [employer] History: Denies Any Significant HX Other Medical History: Denies Any Significant HX, Thyroid Anesthesia History: No Prior Anesthetic Complications, Past Anesthesia Alcohol Use: occasionally Drug use: none Medications and Allergies No Known Home Drugs 09/21/18 [History] Allergy/AdvReac Type Severity Reaction Status Date / Time No Known Allergies Allergy Verified 09/21/18 19:36 - Meds/Allergy Pre-op Review Medications Reviewed: Yes Allergies Reviewed: Yes Beta Blockers on Current Med List: No Anesthesia Results - Labs 09/27/18 06:11 09/27/18 06:11 - Imaging EKG: report reviewed (09/24/2018 ECTOPIC ATRIAL RHYTHM ABNORMAL RHYTHM ECG) Anesthesia Exam O2 Sat O2 Sat by Pulse Oximetry 95 O2 Sat by Pulse Oximetry 96 O2 Sat by Pulse Oximetry 95 O2 Sat by Pulse Oximetry 97 O2 Sat by Pulse Oximetry 96 Vital Signs Temp Pulse Resp BP Pulse Ox 100.4 F H 106 17 149/88 96 09/21/18 21:02 09/21/18 21:02 09/21/18 21:02 09/21/18 21:02 09/21/18 21:02 Height: 5'7'' Weight: 173 lbs NPO (# of Hours): 8 Pain Scale: 0 Pain Scale Used: Numeric (1 - 10) - HEENT Pupil (Motor): EOMI - [employer] LOC: Oriented [employer] Motor: Normal RUE, Normal LUE, Normal RLE, Normal LLE, Normal Face [employer] Sensory: Normal: RUE, LUE, RLE, LLE, Face - Cardiac Rhythm: Regular Murmur: None - Pulmonary Breath Sounds: bilateral Clear Respiratory Effort: Symmetrical Anesthesia Assess/Plan ASA Score: 2 Level of consciousness: Cooperative, Oriented, Tranquil Anesthetic Plan: General Monitoring Plan: Standard Monitors Recovery Plan: PACU
--- NOTE | 2018-09-27 17:06 | Gastroenterology Consult Note ---
Date of Encounter: 09/27/18 Time of Encounter: 11:00 - Assessment and plan (1) Hepatic steatosis Current Visit: Yes Status: Acute Assessment and plan: Check liver workup (AFP, alpha-1 antitrypsin, JAMSHID, ANCA, ceruloplasmin, F actin, ferritin, AMA, PT/INR). LIFESTYLE MODIFICATION: DIETARY ADVISE: Gradual weight loss of 7-10%. Moderate caloric restriction of 500-700 Kcal/day Eliminate or significantly reduce saturated fatty acids and high fructose corn syrup from diet Consider omega-3 fatty acids supplements Consider regular coffee consumption, 2-3 cups/day if can be tolerated EXERCISE ADVISE: Moderate exercise on treadmill, elliptical or in a pool, 4-5/week for 30-45 minutes. Resistance training 3 times/week (2) Elevated LFTs Current Visit: Yes Status: Acute Assessment and plan: Likely secondary to medications. Stop acetaminophen and Phenergan. Recommend changing Bactrim to another antibiotic. Encouraged patient to stop all alcohol consumption. - Time Spent With Patient Total time spent is greater than 50% in coordination of care (as documented) at patient's floor/unit and/or counseling patient: GI History of Present Illness - Data of Consult Patient: new to practice Consult date: 09/27/18 Requesting Physician: Jared Fermin - Consult Narrative Reason for consult: elevated LFTs, fatty liver History of present illness: Mr. Childress is a 58 year old male with no known past medical history who presented to the ED at [facility] with right knee pain and swelling. He underwent a bedside arthrocentesis and was given a dose of clindamycin and vancomycin and transferred here for further evaluation. Ortho took the patient to the OR for right knee arthroscopic irrigation and debri jacky on 09/23 and has been transitioned to oral antibiotics. We were consulted to evaluate his elevated LFTs and fatty liver. On admission TB 0.9. AST 37, ALT 82, alk phos 161. Today TB 0.9, AST 140, ALT 262, alk phos 338. Liver US 09/24 showed fatty liver and mild hepatomegaly. Procedures: None NSAIDs: None Anticoagulation: None Past Med Surg Social Fam HX - Past Medical History Medical history: other (denies any diagnosis) Psychiatric history: no psych history - Past Surgical History Surgical History: other Additional surgical history: growth taken off of right testicle when patient was 23 - Social History Smoking Status: Current every day smoker Packs per day: 1 pack per day for the past 30 years Alcohol use: occasionally Drug use: none - Family History Mother Hx Family Endocrine Disorder: Yes (diabetes) - Gastrointestinal Gastrointestinal: Present: as per HPI - Constitutional Constitutional: as per HPI - EENT Eyes: as per HPI Ears: Present: as per HPI Nose, mouth and throat: Present: as per HPI - Cardiovascular Cardiovascular ROS: Present: as per HPI - Respiratory Respiratory IM: Present: as per HPI - Genitourinary Genitourinary: Absent: change in color, Urinary frequency - Neurological ROS Neurological GI: Present: as per HPI - Hematologic/Lymphatic Hematologic/Lymphatic pediatric: Present: as per HPI - Musculoskeletal Musculoskeletal ROS GI: Present: as per HPI - Integumentary Integumentary GI: Present: as per HPI - Psychiatric ROS Psychiatric GI: Present: as per HPI - Endocrine Endocrine IM: Present: as per HPI - Constitutional Vitals: Temp Pulse Resp BP Pulse Ox 99.6 F 102 14 156/87 95 09/27/18 14:27 09/27/18 14:27 09/27/18 14:27 09/27/18 14:27 09/27/18 14:27 General appearance: Present: cooperative, A&O X 3, no acute distress, answers questions appropriately - Head Head exam: Present: atraumatic, normocephalic - Eye Eye exam: Present: normal appearance, sclera anicteric - ENT ENT exam: Present: mucous membranes moist - Neck Neck exam general surgery: Present: normal inspection, trachea midline - Respiratory Respiratory exam: Present: CTAB. Absent: rales, rhonchi - Cardiovascular Cardiovascular exam: Present: RRR, +S1, +S2 - GI/Abdominal GI/Abdominal exam: Present: soft, no peritoneal signs. Absent: distended, firm, guarding, tenderness - Rectal Rectal exam: Present: deferred - Extremities Exam Extremities exam: Present: warm Additional comments: Edema right knee and mild erythema - Neurological Exam Neurological exam: Present: no focal deficits - Psychiatric Psychiatric exam: Present: normal affect, normal mood - Skin Skin exam: Present: dry, intact, normal color, warm Results - Labs CBC & Chem 7: 09/27/18 06:11 09/27/18 06:11 Labs: Last Result ESR 84 mm/hr (0-10) H 09/27/18 11:00 Calcium 9.5 mg/dL (8.6-10.3) 09/27/18 06:11 Troponin I < 0.03 ng/mL (< 0.04) 09/24/18 03:39 C-Reactive Protein 212 mg/L (Less than 10) H 09/27/18 11:00 Entire Visit Hgb 12.9 g/dL (12.9-16.9) 09/27/18 06:11 Hct 38.4 % (37.5-50.1) 09/27/18 06:11 PT 12.2 Seconds (9.4-12.1) H 09/22/18 07:17 Total Bilirubin 0.9 mg/dL (0.3-1.0) 09/27/18 06:11 AST 140 Units/L (13-39) H 09/27/18 06:11 ALT 262 Units/L (7-52) H 09/27/18 06:11 - ABG ABG results: PT/INR, D-dimer PT 12.2 Seconds (9.4-12.1) H 09/22/18 07:17 Consult Discharge Plan - Plan Referrals: NONE,PCP [Primary Care Provider] -
[2018-09-27] MEDS ORDERED: *HR* Labetalol 20 MG/4 ML SYRINGE IVP PRN (18:13)
[2018-09-27] MEDS ORDERED: Ringers Solution, Lactated 500 ML IVC ONE (18:49)
[2018-09-27] MEDS: Temazepam 15 MG CAPSULE PO PRN (23:11)
--- NOTE | 2018-09-28 06:24 | Orthopedics Progress Note ---
Date of Encounter: 09/28/18 Time of Encounter: 06:23 Subjective Principal diagnosis: Septic right knee, status post I&D right knee Interval history: Patient was seen this morning doing well without complaints. Afebrile vital signs stable. Operative extremity: Neurovascularly intact Wounds clean dry and intact Calves nontender limited motion Assessment and plan: Continue with postoperative care Try to obtain cultures from [facility] Objective Vital signs: Vital Signs Temp Pulse Resp BP Pulse Ox 09/28/18 03:08 99.7 F H 93 14 142/84 93 09/28/18 00:38 99.0 F 101 16 162/90 93 09/27/18 19:14 98.6 F 95 14 160/85 96 09/27/18 14:27 99.6 F 102 14 156/87 95 09/27/18 12:01 98.1 F 102 18 137/90 96 09/27/18 07:13 98.3 F 101 17 115/72 95 Intake and Output 09/27/18 09/27/18 09/28/18 15:59 23:59 07:59 Intake Total 780 / 780 800 / 800 850 / 850 Output Total 650 / 650 600 / 600 1150 / 1150 Balance 130 / 130 200 / 200 -300 / -300 Intake: Oral 780 / 780 800 / 800 850 / 850 Output: Urine 650 / 650 600 / 600 1150 / 1150 Other: Meal Lunch Percent of Meal Consumed 95% Weight 75.3 kg Patient Weight 09/28/18 23:59 Weight 75.3 kg - Labs CBC & BMP: 09/27/18 06:11 09/27/18 06:11 Labs: Abnormal lab results WBC 15.8 K/mcL (4.3-11.1) H 09/27/18 06:11 RBC 3.95 M/mcL (4.19-5.50) L 09/27/18 06:11 Plt Count 580 K/mcL (140-400) H 09/27/18 06:11 MPV 8.3 fL (9.4-12.4) L 09/27/18 06:11 Neutrophils # 11.6 K/mcL (1.6-8.9) H 09/27/18 06:11 Monocytes # 2.0 K/mcL (0.0-1.3) H 09/27/18 06:11 ESR 84 mm/hr (0-10) H 09/27/18 11:00 PT 12.2 Seconds (9.4-12.1) H 09/22/18 07:17 Sodium 131 mEq/L (136-145) L 09/27/18 06:11 Chloride 97 mEq/L (98-107) L 09/27/18 06:11 Glucose 141 mg/dL (70-105) H 09/27/18 06:11 Calculated Osmolality 273 (280-300) L 09/27/18 06:11 Direct Bilirubin 0.3 mg/dL (0.0-0.2) H 09/24/18 03:39 AST 140 Units/L (13-39) H 09/27/18 06:11 ALT 262 Units/L (7-52) H 09/27/18 06:11 Alkaline Phosphatase 338 Units/L (34-104) H 09/27/18 06:11 C-Reactive Protein 212 mg/L (Less than 10) H 09/27/18 11:00 Albumin 3.2 g/dL (3.5-5.7) L 09/27/18 06:11 Globulin 3.7 g/dL (2.4-3.5) H 09/27/18 06:11 Albumin/Globulin Ratio 0.9 (1.1-2.2) L 09/27/18 06:11 TSH 21.032 mcIU/mL (0.340-5.600) H 09/24/18 09:11 Free T4 0.41 ng/dl (0.70-2.00) L 09/24/18 03:39 Vancomycin Trough 14 mcg/mL (5-10) H 09/25/18 16:47 Consult Discharge Plan - Plan Referrals: NONE,PCP [Primary Care Provider] -
[2018-09-28] MEDS: *HR* OxyCODONE Immed Rel 5 MG TABLET PO PRN ×3 (06:50→20:41)
--- NOTE | 2018-09-28 07:54 | Internal Med Progress Note ---
Hospitalist Progress Note - Encounter Date of Encounter: 09/28/18 Time of Encounter: 07:54 - Subjective Interval History: Patient seen and evaluated at the bedside. He denies any complaints or concerns today, and states that he is doing well. He voices that he is eager to go home as soon as he is medically cleared. Nursing staff reports no significant o vernight events. - Exam Vitals: Temp Pulse Resp BP Pulse Ox 98.6 F 104 14 166/94 95 09/28/18 07:12 09/28/18 07:12 09/28/18 07:12 09/28/18 07:12 09/28/18 07:12 Exam: GENERAL: well-developed, well-nourished adult male in no acute distress. HEENT: Atraumatic and normocephalic. CARDIOVASCULAR: Regular rate and rhythm. S1 and S2 present. No murmurs, gallops, or rubs. RESPIRATORY: Clear to auscultation bilaterally. Chest rises and falls symmetrically without accessory muscle use. GASTROINTESTINAL: Abdomen is soft, nontender, nondistended. EXTREMITIES: No clubbing, cyanosis, or edema. mild bruising present around the right knee secondary to recent arthroscopy. SKIN: Warm, dry, and intact. NEUROLOGIC: Alert and oriented x3. Patient is cooperative with exam and answers questions appropriately. No apparent focal deficits. PSYCHIATRIC: Appropriate mood and affect. - Assessment and Plan (1) Effusion, right knee Current Visit: Yes Status: Acute Assessment and Plan: Uncertain etiology - septic arthritis vs. pseudogout vs. inflammatory response. Arthrocentesis was performed at outside facility prior to hospital transfer, with appropriate microbiology studies. Arthroscopy and joint washout was performed on 09/23/[address] Metcalf. Since that procedure, patient has had significant improvement in the pain. Cultures thus far have remained negative. - Continue to monitor closely for signs and symptoms of ongoing infection. - Follow up for final microbiology results. - Continue PT/OT. (2) Elevated WBC count Current Visit: Yes Status: Acute Assessment and Plan: Patient noted to have slowly upward trending leukocytosis of the last several days. He remains afebrile. Sudden improvement and to BBC count this morning. Per infectious disease recommendations, antibiotic therapy has been discontinued. - Continue to monitor and trend CBC while off antibiotics. - Appreciate infectious diseases input and recommendations regarding this problem. (3) Elevated LFTs Current Visit: Yes Status: Acute Assessment and Plan: Unclear etiology. Liver ultrasound performed on 09/24/2018 demonstrated hepatic steatosis and accidents of mild hepatomegaly. Patient was also noted to have a probable right renal cyst, with recommendation for follow-up ultrasound in 6 months versus additional characterization with contrast CT of the abdomen. LFTs continue to be high on laboratory studies; hepatitis panel was nonreactive. Per GI recommendations, hepatotoxic agents have been discontinued. Further hepatic workup in process per GI. - Continue to repeat in trend LFTs. - Appreciate GI recommendations and assistance with management of this problem. (4) Hypothyroidism Current Visit: Yes Status: Acute Assessment and Plan: Patient noted to have significantly elevated TSH of 21.032. Subsequent free T4 laboratory study was significant for a low value of 0.14. - Continue Synthroid 88mcg daily. - Patient will require outpatient follow-up to ensure proper thyroid hormone dosing. (5) Tobacco use Current Visit: Yes Status: Chronic Assessment and Plan: - Tobacco cessation counselling provided. - Nicotine patch PRN. (6) DVT prophylaxis Current Visit: Yes Status: Acute Assessment and Plan: - SCDs. - Time Spent with Patient Total time spent is greater than 50% in coordination of care (as documented) at patient's floor/unit and/or counseling patient: Internal Medicine: Result - Labs CBC & Chem 7: 09/28/18 08:21 09/28/18 08:21 - ABG Interpretation ABG results: PT/INR, D-dimer PT 12.2 Seconds (9.4-12.1) H 09/22/18 07:17 Consult Discharge Plan - Plan Referrals: NONE,PCP [Primary Care Provider] - (2) Elevated WBC count Qualifiers: Leukocytosis type: unspecified Qualified Code(s): D72.829 - Elevated white blood cell count, unspecified (4) Hypothyroidism Qualifiers: Hypothyroidism type: unspecified Qualified Code(s): E03.9 - Hypothyroidism, unspecified
--- NOTE | 2018-09-28 08:44 | Event Note ---
Date of Encounter: 09/28/18 Time of Encounter: 08:41 Patient was seen and examined. I agree with the progress note as written by the resident physician. No acute events. tachycardic at times. Afebrile. Tmax 99.7. Leukocytosis was last two days but better today. Patient admitted with right knee swelling and went to the OR for irrigation and debridement by orthopedics. Cultures are negative to date. He had arthrocentesis done at an outside facility prior to coming here with cultures there reportedly negative. He was put on IV vancomycin and ceftriaxone. Switched to Bactrim 09/26 and remains on IV ceftriaxone. Noted to have elevated liver function tests. liver US showed hepatic steatosis. Mention of a right renal cyst. Reports some nausea and vomiting with food prior to this. GEN: NAD CVS: RRR. S1, S2, No m/r/g RESP: CTAB ABD: Soft, NT, ND, +BS EXT: No edema. 2+ DP. No rashes. Dressing is clean and dry. NEURO: Nonfocal Will give a 500 cc bolus and see if tachycardia involves ID stopped abx to monitor. Would like to monitor another day. Platelets continue to trend up. cultures negative reportedly from outside and here. LFTs elevation evaluated by GI. labs are ordered by them that can be followed upon outside of here hepatitis panel negative TSH elevated, T4 low. Started on levothyroxine Discharge only when cleared by all services.
[2018-09-28 09:02] LABS: Basophils % 0.2 %; Eosinophils # 0.1 K/mcL (0.0-0.6); Eosinophils % 0.9 %; Hematocrit 38.7 % (37.5-50.1); Immature Granulocytes % 0.4 % (0-4); Lymphocytes # 1.8 K/mcL (0.6-4.6); Lymphocytes % 14.4 %; Mean Corpuscular HGB Conc 33.6 g/dL (31.6-35.5); Mean Corpuscular Hemoglobin 32.8 pg (28.0-33.3); Mean Corpuscular Volume 97.7 fL (83.0-100.0); Mean Platelet Volume 8.3 fL (9.4-12.4); Monocytes # 1.8 K/mcL (0.0-1.3); Monocytes % 14.6 %; Neutrophils # 8.8 K/mcL (1.6-8.9); Platelet Count 591 K/mcL (140-400); Red Blood Count 3.96 M/mcL (4.19-5.50); Red Cell Distribution Width 13.1 % (11.5-14.5); Segmented Neutrophils % 69.5 %
[2018-09-28 09:18] LABS: INR 1.1
[2018-09-28 09:27] LABS: Alanine Aminotransferase 258 Units/L (7-52); Albumin 3.2 g/dL (3.5-5.7); Albumin/Globulin Ratio 0.8 (1.1-2.2); Alkaline Phosphatase 380 Units/L (34-104); Aspartate Amino Transferase 98 Units/L (13-39); BUN/Creatinine Ratio 16 (6-26); Bilirubin,Direct 0.5 mg/dL (0.0-0.2); Bilirubin,Indirect 0.7 mg/dL (0.0-1.2); Bilirubin,Total 1.2 mg/dL (0.3-1.0); Blood Urea Nitrogen 10 mg/dL (6-20); Carbon Dioxide 26 mEq/L (23-29); Chloride 98 mEq/L (98-107); Globulin 3.8 g/dL (2.4-3.5); Glucose 127 mg/dL (70-105); Osmolality,Calculated 275 (280-300); Potassium 4.3 mEq/L (3.5-5.1); Sodium 132 mEq/L (136-145); eGFR For Non-African Americans > 60 (> 60)
[2018-09-28] MEDS: Ascorbic Acid 500 MG TABLET PO SCH ×2 (09:51→18:00)
[2018-09-28] MEDS: Multivit/Ca/Min/Fe/FA 1 TAB TABLET PO SCH (09:51)
[2018-09-28 11:06] LABS: Ferritin > 1500 ng/mL (20-250)
--- NOTE | 2018-09-28 11:14 | Infectious Disease Progress No ---
ID Progress Note Date of Encounter: 09/28/18 Time of Encounter: 11:11 - Subjective Subjective: Patient seen and examined. No acute events noted overnight. Patient complains of pain in the right knee since working with physical therapy this morning. Denies fevers, chills, rigors. Denies chest pain, shortness of breath, or cough. Denies nausea, vomiting, diarrhea, or constipation. Denies abdominal pain or urinary complaints. States appetite is good. Denies any oral thrush or new skin lesions. Denies any congestion, earache, or sore throat. His pain in his back, extremities, or joints except as previously mentioned. - Objective CBC & Chem 7: 09/29/18 06:06 09/29/18 06:06 - Exam Vitals: Temp Pulse Resp BP Pulse Ox 98.6 F 104 14 166/94 95 09/28/18 07:12 09/28/18 07:12 09/28/18 07:12 09/28/18 07:12 09/28/18 07:12 Exam: Head: Atraumatic, normal inspection, normocephalic. Eye: EOMI, PERRLA, no scleral icterus noted. ENT: Mucous membranes moist. No odontogenic infection noted. Poor dentition noted. Neck: Normal inspection, no meningismus. Respiratory: Clear to auscultation. No rales, respiratory distress, rhonchi, or wheezes noted. Cardiovascular: Regular rate and rhythm, S1 and S2 audible. No murmurs, rubs, or gallops. GI: Soft, nondistended, normal bowel sounds. Extremities: Mild edema noted to the right knee. No erythema or warmth noted. Mild tenderness noted on palpation. Range of motion diminished due to pain and swelling. Stab incision sites noted with Steri-Strips intact. No drainage noted. Back: Normal inspection. No vertebral tenderness noted. Neurological: Alert, oriented 3, no focal deficits. Psychiatric: normal affect, normal mood. Skin: Dry, intact, warm. Normal color. No rashes. - Assessment and Plan (1) Sepsis Status: Acute The patient had 2 sepsis criteria on admission and developed fever after arrival. Etiology: Unclear. Initially felt to be secondary to septic arthritis of the right knee, but cultures and Gram stain are negative. Review developed leukocytosis and tachycardia. Etiology: Unclear, but possibly reactive from surgery. White blood cell count trending down. Tachycardia improved. Blood cultures drawn at [facility] 09/21/18 are negative 2 sets. Qualifiers: Sepsis type: sepsis due to unspecified organism Qualified Code(s): A41.9 - Sepsis, unspecified organism SNOMED Code(s): 72924202 (2) Elevated WBC count Status: Acute Etiology: Unclear. Consider noninfectious sources. Initially resolved, but redeveloped 09/26/18. Noted to have 12% monocytes. Review of systems essentially negative. Elevated LFTs noted, but not sure that these are related. Improved today. Qualifiers: Leukocytosis type: unspecified Qualified Code(s): D72.829 - Elevated white blood cell count, unspecified SNOMED Code(s): 860408258, 841092587 (3) Effusion, right knee Status: Acute X-ray of the right knee showed a nonspecific joint effusion. Status post arthrocentesis at [facility]. 10,000 RBCs noted with TMC 72,670 with 86% segmented neutrophils. Gram stain showed few gram- positive rods, but the culture was negative. Orthopedics consult. Status post right knee arthroscopic irrigation and debridement. Intraoperative cultures and Gram stain were negative. Antibiotics currently on hold. SNOMED Code(s): 319016451 (4) Elevated LFTs Status: Acute Etiology: Unclear. Liver ultrasound showed hepatic steatosis and probable right renal cyst. GI consulted. SNOMED Code(s): 082507474, [id number] - Recommendations Recommendations: Continue to trend white blood cell count. Knee cultures negative x 2. Continue to observe off antibiotics. Should the patient take a turn to the worse of develop sepsis-like picture, recommend repeating cultures and re-starting broad-spectrum antibiotics. Consult Discharge Plan - Plan Additional Instructions: Follow up with your PCP in 3-5 days for reevaluation. Have repeat laboratory studies drawn on 10/04/2018. Continue taking levothyroxine daily. You will need repeat TSH drawn in approxi mately 6 weeks. Take oxycodone 5mg as needed for severe pain. You can take OTC ibuprofen as needed, but do not take tylenol. Return to the emergency department if you develop fevers, chills, worsening pain/swelling of your knee, or if any concerns arise. Referrals: [facility] [Outside] - 10/06/18 1:00 pm Carolyn Maldonado, PAC [Physician Herpetologist] - 10/01/18 8:45 am NONE,PCP [Primary Care Provider] - Prescriptions: RX: OxyCODONE Immed Rel [Roxicodone 5 MG] 5 mg PO Q6HR PRN 2 Days #8 tablet PRN Reason: Moderate Pain RX: Docusate [Colace] 100 mg PO BID #60 capsule RX: Levothyroxine [Synthroid] 88 mcg PO DAILY@0630 #30 tablet - Attending Attestation I have personally performed a face to face evaluation on this patient. I have reviewed and agree with the care plan. History and Exam by me shows: A/P: sepsis knee effusion - etiology not clear. infectious vs inflammatory vs other? elevated LFT's REcommendations: at this point no obvious infection. await cultures to finalize will d/c all antibiotics and see if infection reveals itself
[2018-09-28 13:55] LABS: Basophils % 0.1 %; Eosinophils % 0.3 %; Hematocrit 39.5 % (37.5-50.1); Hemoglobin 13.1 g/dL (12.9-16.9); Immature Granulocytes % 0.9 % (0-4); Lymphocytes # 1.6 K/mcL (0.6-4.6); Lymphocytes % 11.2 %; Mean Corpuscular HGB Conc 33.2 g/dL (31.6-35.5); Mean Corpuscular Hemoglobin 32.8 pg (28.0-33.3); Mean Corpuscular Volume 98.8 fL (83.0-100.0); Mean Platelet Volume 8.1 fL (9.4-12.4); Monocytes # 2.1 K/mcL (0.0-1.3); Monocytes % 14.2 %; Neutrophils # 10.7 K/mcL (1.6-8.9); Platelet Count 591 K/mcL (140-400); Red Cell Distribution Width 13.1 % (11.5-14.5); Segmented Neutrophils % 73.3 %
[2018-09-28 14:23] LABS: Alanine Aminotransferase 303 Units/L (7-52); Albumin 3.3 g/dL (3.5-5.7); Albumin/Globulin Ratio 0.8 (1.1-2.2); Alkaline Phosphatase 377 Units/L (34-104); Aspartate Amino Transferase 162 Units/L (13-39); BUN/Creatinine Ratio 18 (6-26); Bilirubin,Total 1.5 mg/dL (0.3-1.0); Blood Urea Nitrogen 13 mg/dL (6-20); Calcium 9.9 mg/dL (8.6-10.3); Carbon Dioxide 29 mEq/L (23-29); Chloride 93 mEq/L (98-107); Globulin 3.9 g/dL (2.4-3.5); Glucose 148 mg/dL (70-105); Osmolality,Calculated 271 (280-300); Potassium 4.2 mEq/L (3.5-5.1); Sodium 129 mEq/L (136-145); Total Protein 7.2 g/dL (6.4-8.9); eGFR For Non-African Americans > 60 (> 60)
--- NOTE | 2018-09-28 16:18 | Electrocardiograph Report ---
[address] [address] Test Date: 2018-09-27 Pat Name: Rylan Childress Department: 114 Room: [facility] Gender: M Energy Director: [id number] : 1960 Requested By: Nancy Michelle Order Number: [id number] Reading MD: Reji Bhakta Measurements Intervals [place] Rate: 108 P: 256 MS: 76 QRS: 35 QRSD: 93 T: 30 QT: 306 QTc: 369 Interpretive Statements Ectopic atrial tachycardia Electronically Signed On 09-28-2018 16:17:20 EDT by Reji Bhakta
--- NOTE | 2018-09-29 06:31 | Orthopedics Progress Note ---
Date of Encounter: 09/29/18 Time of Encounter: 06:30 Subjective Principal diagnosis: Septic right knee, status post I&D right knee Interval history: Patient was seen this morning doing well without complaints. Afebrile vital signs stable. Operative extremity: Neurovascularly intact Wounds clean dry and intact Calves nontender limited motion Assessment and plan: Continue with postoperative care Report states cultures negative from outside facility, stable for discharge Objective Vital signs: Vital Signs Temp Pulse Resp BP Pulse Ox 09/29/18 02:38 99.4 F 99 14 143/77 96 09/28/18 20:45 95 09/28/18 19:04 99.4 F 105 16 155/85 95 09/28/18 15:08 99.1 F 104 16 138/80 97 09/28/18 11:24 98.6 F 101 18 167/92 98 09/28/18 07:12 98.6 F 104 14 166/94 95 Intake and Output 09/28/18 09/28/18 09/29/18 15:59 23:59 07:59 Intake Total 360 / 360 300 / 300 100 / 100 Output Total 800 / 800 875 / 875 1225 / 1225 Balance -440 / -440 -575 / -575 -1125 / -1125 Intake: Oral 360 / 360 300 / 300 100 / 100 Output: Urine 800 / 800 875 / 875 1225 / 1225 Other: Meal Breakfast Percent of Meal Consumed 100% # Voids 1 Weight 76.08 kg Patient Weight 09/29/18 23:59 Weight 76.08 kg - Labs CBC & BMP: 09/28/18 13:40 09/28/18 13:40 Labs: Abnormal lab results WBC 14.5 K/mcL (4.3-11.1) H 09/28/18 13:40 RBC 4.00 M/mcL (4.19-5.50) L 09/28/18 13:40 Plt Count 591 K/mcL (140-400) H 09/28/18 13:40 MPV 8.1 fL (9.4-12.4) L 09/28/18 13:40 Neutrophils # 10.7 K/mcL (1.6-8.9) H 09/28/18 13:40 Monocytes # 2.1 K/mcL (0.0-1.3) H 09/28/18 13:40 ESR 84 mm/hr (0-10) H 09/27/18 11:00 Sodium 129 mEq/L (136-145) L 09/28/18 13:40 Chloride 93 mEq/L (98-107) L 09/28/18 13:40 Glucose 148 mg/dL (70-105) H 09/28/18 13:40 Calculated Osmolality 271 (280-300) L 09/28/18 13:40 Ferritin > 1500 ng/mL (20-250) H 09/28/18 08:21 Total Bilirubin 1.5 mg/dL (0.3-1.0) H 09/28/18 13:40 Direct Bilirubin 0.5 mg/dL (0.0-0.2) H 09/28/18 08:21 AST 162 Units/L (13-39) H 09/28/18 13:40 ALT 303 Units/L (7-52) H 09/28/18 13:40 Alkaline Phosphatase 377 Units/L (34-104) H 09/28/18 13:40 C-Reactive Protein 212 mg/L (Less than 10) H 09/27/18 11:00 Albumin 3.3 g/dL (3.5-5.7) L 09/28/18 13:40 Globulin 3.9 g/dL (2.4-3.5) H 09/28/18 13:40 Albumin/Globulin Ratio 0.8 (1.1-2.2) L 09/28/18 13:40 TSH 21.032 mcIU/mL (0.340-5.600) H 09/24/18 09:11 Vancomycin Trough 14 mcg/mL (5-10) H 09/25/18 16:47 Consult Discharge Plan - Plan Referrals: NONE,PCP [Primary Care Provider] -
[2018-09-29 06:41] LABS: Hematocrit 37.5 % (37.5-50.1); Hemoglobin 12.6 g/dL (12.9-16.9); Mean Corpuscular HGB Conc 33.6 g/dL (31.6-35.5); Mean Corpuscular Hemoglobin 32.9 pg (28.0-33.3); Mean Corpuscular Volume 97.9 fL (83.0-100.0); Mean Platelet Volume 8.3 fL (9.4-12.4); Platelet Count 562 K/mcL (140-400); Red Blood Count 3.83 M/mcL (4.19-5.50); Red Cell Distribution Width 13.2 % (11.5-14.5)
[2018-09-29 07:01] LABS: BUN/Creatinine Ratio 19 (6-26); Blood Urea Nitrogen 14 mg/dL (6-20); Calcium 9.9 mg/dL (8.6-10.3); Carbon Dioxide 26 mEq/L (23-29); Chloride 97 mEq/L (98-107); Glucose 128 mg/dL (70-105); Osmolality,Calculated 276 (280-300); Potassium 4.2 mEq/L (3.5-5.1); Sodium 132 mEq/L (136-145); eGFR For Non-African Americans > 60 (> 60)
[2018-09-29] MEDS: Multivit/Ca/Min/Fe/FA 1 TAB TABLET PO SCH (07:29)
[2018-09-29] MEDS: *HR* OxyCODONE Immed Rel 5 MG TABLET PO PRN (07:30)
[2018-09-29] MEDS: Ascorbic Acid 500 MG TABLET PO SCH (07:30)
[2018-09-29 09:39] LABS: Albumin 3.3 g/dL (3.5-5.7); Albumin/Globulin Ratio 0.8 (1.1-2.2); Bilirubin,Direct 0.8 mg/dL (0.0-0.2); Bilirubin,Indirect 0.6 mg/dL (0.0-1.2); Bilirubin,Total 1.4 mg/dL (0.3-1.0); Total Protein 7.3 g/dL (6.4-8.9)
[2018-09-29 10:14] VITALS: BP 146/83
--- NOTE | 2018-09-29 10:27 | Discharge Summary ---
<Nathen Green - Last Filed: 09/29/18 12:19> Orders not resulted at time of discharge: Pending orders 09/27/18 11:00 JAMSHID IgG RENETTA rflx IFA Routine Procalcitonin Routine 09/27/18 18:11 ECG 12 lead ECG [ECG] Routine 09/28/18 08:21 AFP Tumor Marker Non- Routine [id number] AM 0400 Ceruloplasmin AM 0400 F-Actin IgG Reflex Sm Muscle AM 0400 Liver Fibrosis for NAFLD Routine MPO/PR3 (ANCA) Antibodies Routine Mitochondrial M2 Antibody, IgG AM 0400 09/30/18 04:00 BMP [Basic Metabolic Panel] AM 0400 CBC no Diff [Complete Blood Count w/o Diff] [HEME] AM 0400 Date of Encounter: 09/29/18 - Discharge Diagnosis (1) Elevated LFTs Status: Acute (2) Effusion, right knee Status: Acute (3) Tobacco use Status: Chronic (4) Elevated WBC count Status: Acute Qualifiers: Leukocytosis type: unspecified Qualified Code(s): D72.829 - Elevated white blood cell count, unspecified (5) Hypothyroidism Status: Acute Qualifiers: Hypothyroidism type: unspecified Qualified Code(s): E03.9 - Hypothyroidism, unspecified Hospital course: Mr. Childress is a 58 year old male - Time Spent with Patient Total time spent providing and/or coordinating discharge services: - Discharge Medications Prescriptions: New OxyCODONE Immed Rel [Roxicodone 5 MG] 5 mg PO Q6HR PRN 2 Days #8 tablet PRN Reason: Moderate Pain Docusate [Colace] 100 mg PO BID #60 capsule Levothyroxine [Synthroid] 88 mcg PO DAILY@0630 #30 tablet Home Medications: Docusate [Colace] 100 mg PO BID #60 capsule 09/29/18 [Rx] Levothyroxine [Synthroid] 88 mcg PO DAILY@0630 #30 tablet 09/29/18 [Rx] OxyCODONE Immed Rel [Roxicodone 5 MG] 5 mg PO Q6HR PRN 2 Days #8 tablet 09/29/18 [Rx] Allergies/Adverse Reactions: Allergy/AdvReac Type Severity Reaction Status Date / Time No Known Allergies Allergy Verified 09/21/18 19:36 Date of admission: 09/23/18 16:57 Primary care physician: PCP NONE Consults: 09/21/18 23:00 Consult to Orthopedic Surgery [CONS] Routine Consulting Provider: [facility] Reason for Consult: right knee effusion Call Completed: Yes 09/23/18 19:18 Consult to Nutrition [CONS] Routine Comment: Consulting Provider: NUTRITION Reason for Dietary Consult: Other Other:: Proper nutrition to facilitate wound healing Consult to Orthopedic Navigator [CONS] [CONS] Routine Consult to Physical Therapy [CONS] Routine Comment: Evaluate, develop and impliment POC Reason for Consult: post knee surgery Does patient have active BEDREST order?: No Is patient medically & hemodynamically stable?: Yes Consult to Director Of Loss Prevention [CONS] Routine Reason for SW Consult: post op joint replacement RT Post Op Consult [CONS] Routine 09/26/18 15:30 Consult to Gastroenterology [CONS] Routine Consulting Provider: [facility] Reason for Consult: Elevated LFTs; hepatic steatosis and mild hepatomegaly on ultrasound. Hepatitis panel negative. Time Notified: 15:31 Call Completed: No 09/27/18 08:53 Consult to Infectious Diseases [CONS] Routine Consulting Provider: Infectious Disease [facility] Reason for Consult: R knee swelliing, s/p arthroscopy and washout. Cultures neg thus far, but pt having worsening leukocytosis Time Notified: 08:53 Call Completed: Yes - Constitutional Vitals: Temp Pulse Resp BP Pulse Ox 98.2 F 101 16 146/83 97 09/29/18 10:13 09/29/18 10:13 09/29/18 10:13 09/29/18 10:13 09/29/18 10:13 - Patient Status Disposition: Home, Self-Care Condition: Good - Ambulatory Orders Ambulatory Orders: Complete Blood Count [HEME] Time Frame: 10/04/18, Location: Determined By Patient Hepatic Panel [CHEM] Time Frame: 10/04/18, Location: Determined By Patient - Discharge Instructions Follow Up With: [facility]Outside] - 10/06/18 1:00 pm Carolyn Maldonado PAC [Physician Movie Stunt Performer] - 10/01/18 8:45 am NONE,PCP [Primary Care Provider] - Additional Instructions: Follow up with your PCP in 3-5 days for reevaluation. Have repeat laboratory studies drawn on 10/04/2018. Continue taking levothyroxine daily. You will need repeat TSH drawn in approximately 6 weeks. Take oxycodone 5mg as needed for severe pain. You can take OTC ibuprofen as needed, but do not take tylenol. Return to the emergency department if you develop fevers, chills, worsening pain/swelling of your knee, or if any concerns arise. - Attending Attestation I examined this patient and my medical decision-making was reviewed with the Resident Physician. I agree with the documented findings, disposition and treatment plan as described except to the extent set forth below. Patient seen and examined at bedside. Patient states that his knee pain is improved. Denies any fevers or chills. On exam mild swelling of the right knee but no overlying erythema. Right lower extremity is neurovascularly intact Right knee pain: There is initial concern for septic arthritis however cultures at outside hospital were negative. Patient has been off antibiotics and continues to improve. Discharge home for outpatient follow-up, no antibiotics at discharge warranted. Time spent on discharge: 40 minutes <Melonie Delgado - Last Filed: 09/29/18 17:56> - NOTES TO OUTPATIENT PROVIDER Notes to Outpatient Provider: Patient into the hospital with right knee effusion due to concerns for septic joint. He underwent arthroscopy with washout; cultures were negative for presence of bacteria or growth of infectious organisms. Patient was noted to have elevated LFTs during admission; hepatic workup initiated, with outpatient follow-up in GI clinic. Patient was noted to be hypothyroid, and was started on Synthroid 88 g; he will require repeat TSH in 6 weeks. Patient will require repeat CBC and metabolic panel on 10/04/18 to ensure resolution of laboratory abnormalities. Orders not resulted at time of discharge: Pending orders 09/27/18 11:00 JAMSHID IgG RENETTA rflx IFA Routine Procalcitonin Routine 09/27/18 18:11 ECG 12 lead ECG [ECG] Routine 09/28/18 08:21 AFP Tumor Marker Non- Routine [id number] AM 0400 Ceruloplasmin AM 0400 F-Actin IgG Reflex Sm Muscle AM 0400 Liver Fibrosis for NAFLD Routine MPO/PR3 (ANCA) Antibodies Routine Mitochondrial M2 Antibody, IgG AM 0400 09/30/18 04:00 BMP [Basic Metabolic Panel] AM 0400 CBC no Diff [Complete Blood Count w/o Diff] [HEME] AM 0400 Date of Encounter: 09/29/18 Time of Encounter: 10:24 - Discharge Diagnosis (1) Effusion, right knee Priority: Primary Status: Acute (2) Elevated WBC count Priority: Secondary Status: Acute Qualifiers: Leukocytosis type: unspecified Qualified Code(s): D72.829 - Elevated white blood cell count, unspecified (3) Elevated LFTs Priority: Secondary Status: Acute (4) Hypothyroidism Priority: Secondary Status: Acute Qualifiers: Hypothyroidism type: unspecified Qualified Code(s): E03.9 - Hypothyroidism, unspecified (5) Tobacco use Priority: Secondary Status: Chronic Hospital course: Mr. Childress is a 58 year old male who presented to the emergency department due to right knee effusion. Joint aspiration was performed at [facility], after which patient was transferred to [facility]. He was evaluated by orthopedic surgery, and underwent arthroscopy with washout. Patient was started on broad-spectrum antibiotic therapy; however, cultures obtained demonstrated no growth of infectious organisms. Patient was noted to have elevated LFTs during admission, slow upward trend. Right upper quadrant ultrasound demonstrated hepatic steatosis and mild hepatomegaly. Gastroenterology consult was placed, with recommendation to avoid hepatotoxic medications, as this was felt to be the cause. Laboratory workup for other hepatic abnormalities was started on however, many of these had not resulted at time of discharge. During admission, patient was noted to have EKG abnormality on telemetry and. Workup for causes revealed significantly elevated TSH, with subsequent free T4 Ms. noted to be abnormally low. Patient was started on Synthroid 88 g, with recommendation to follow up in 6 weeks for reevaluation. - Time Spent with Patient Total time spent providing and/or coordinating discharge services: Date of admission: 09/23/18 16:57 Primary care physician: PCP NONE Consults: 09/21/18 23:00 Consult to Orthopedic Surgery [CONS] Routine Consulting Provider: [facility] Reason for Consult: right knee effusion Call Completed: Yes 09/23/18 19:18 Consult to Nutrition [CONS] Routine Comment: Consulting Provider: NUTRITION Reason for Dietary Consult: Other Other:: Proper nutrition to facilitate wound healing Consult to Orthopedic Navigator [CONS] [CONS] Routine Consult to Physical Therapy [CONS] Routine Comment: Evaluate, develop and impliment POC Reason for Consult: post knee surgery Does patient have active BEDREST order?: No Is patient medically & hemodynamically stable?: Yes Consult to Director Of Loss Prevention [CONS] Routine Reason for SW Consult: post op joint replacement RT Post Op Consult [CONS] Routine 09/26/18 15:30 Consult to Gastroenterology [CONS] Routine Consulting Provider: Gastroentertien Yuan Reason for Consult: Elevated LFTs; hepatic steatosis and mild hepatomegaly on ultrasound. Hepatitis panel negative. Time Notified: 15:31 Call Completed: No 09/27/18 08:53 Consult to Infectious Diseases [CONS] Routine Consulting Provider: Infectious Disease [facility] Reason for Consult: R knee swelliing, s/p arthroscopy and washout. Cultures neg thus far, but pt having worsening leukocytosis Time Notified: 08:53 Call Completed: Yes Discharging clinician: Melonie Delgado Anticipated date of discharge: 09/29/18 - Constitutional Vitals: Temp Pulse Resp BP Pulse Ox 98.2 F 101 16 146/83 97 09/29/18 10:13 09/29/18 10:13 09/29/18 10:13 09/29/18 10:13 09/29/18 10:13 Exam: GENERAL: well-developed, well-nourished adult male in no acute distress. HEENT: Atraumatic and normocephalic. CARDIOVASCULAR: Regular rate and rhythm. S1 and S2 present. No murmurs, gallops, or rubs. RESPIRATORY: Clear to auscultation bilaterally. Chest rises and falls symmetrically without accessory muscle use. GASTROINTESTINAL: Abdomen is soft, nontender, nondistended. EXTREMITIES: No clubbing, cyanosis, or edema. mild bruising present around the right knee secondary to recent arthroscopy. SKIN: Warm, dry, and intact. NEUROLOGIC: Alert and oriented x3. Patient is cooperative with exam and answers questions appropriately. No apparent focal deficits. PSYCHIATRIC: Appropriate mood and affect. - Patient Status Functional capacity at discharge: independent ambulation Overall status at discharge: patient is progressing back to baseline - Diet and Activity Activity: increase activity as tolerated Diet: regular diet
--- NOTE | 2018-09-29 10:35 | Infectious Disease Progress No ---
ID Progress Note Date of Encounter: 09/29/18 Time of Encounter: 10:33 - Subjective Subjective: Patient seen and examined. No acute events noted overnight. Patient complains of mild pain in the right knee this morning. Denies fevers, chills, rigors. Denies chest pain, shortness of breath, or cough. Denies nausea, vomiting, diarrhea, or constipation. Denies abdominal pain or urinary complaints. States appetite is good. Denies any oral thrush or new skin lesions. Denies any congestion, earache, or sore throat. Denies pain in his back, extremities, or joints except as previously mentioned. - Objective CBC & Chem 7: 09/29/18 06:06 09/29/18 06:06 - Exam Vitals: Temp Pulse Resp BP Pulse Ox 98.2 F 101 16 146/83 97 09/29/18 10:13 09/29/18 10:13 09/29/18 10:13 09/29/18 10:13 09/29/18 10:13 Exam: Head: Atraumatic, normal inspection, normocephalic. Eye: EOMI, PERRLA, no scleral icterus noted. ENT: Mucous membranes moist. No odontogenic infection noted. Poor dentition noted. Neck: Normal inspection, no meningismus. Respiratory: Clear to auscultation. No rales, respiratory distress, rhonchi, or wheezes noted. Cardiovascular: Regular rate and rhythm, S1 and S2 audible. No murmurs, rubs, or gallops. GI: Soft, nondistended, normal bowel sounds. Extremities: Mild edema noted to the right knee. No erythema or warmth noted. Mild tenderness noted on palpation. Range of motion diminished due to pain and swelling. Stab incision sites noted with Steri-Strips intact. No drainage noted. Back: Normal inspection. No vertebral tenderness noted. Neurological: Alert, oriented 3, no focal deficits. Psychiatric: normal affect, normal mood. Skin: Dry, intact, warm. Normal color. No rashes. - Assessment and Plan (1) Sepsis Status: Acute The patient had 2 sepsis criteria on admission and developed fever after arrival. Etiology: Unclear. Initially felt to be secondary to septic arthritis of the right knee, but cultures and Gram stain are negative. Review developed leukocytosis and tachycardia. Etiology: Unclear, but possibly reactive from surgery. White blood cell count trending down. Tachycardia improved. Blood cultures drawn at [facility] 09/21/18 are negative 2 sets. Qualifiers: Sepsis type: sepsis due to unspecified organism Qualified Code(s): A41.9 - Sepsis, unspecified organism SNOMED Code(s): 43392791 (2) Elevated WBC count Status: Acute Etiology: Unclear. Consider noninfectious sources. Initially resolved, but redeveloped 09/26/18. Noted to have 12% monocytes. Review of systems essentially negative. Elevated LFTs noted, but not sure that these are related. Continues to improve. Qualifiers: Leukocytosis type: unspecified Qualified Code(s): D72.829 - Elevated white blood cell count, unspecified SNOMED Code(s): 443698834, [id number] (3) Effusion, right knee Status: Acute X-ray of the right knee showed a nonspecific joint effusion. Status post arthrocentesis at [facility]. 10,000 RBCs noted with TMC 72,670 with 86% segmented neutrophils. Gram stain showed few gram- positive rods, but the culture was negative. Orthopedics consult. Status post right knee arthroscopic irrigation and debridement. Intraoperative cultures and Gram stain were negative. Antibiotics currently on hold. SNOMED Code(s): 671941312 (4) Elevated LFTs Status: Acute Etiology: Unclear. Liver ultrasound showed hepatic steatosis and probable right renal cyst. GI consulted. SNOMED Code(s): 918348348, [id number] - Recommendations Recommendations: Continue to trend white blood cell count. Re-check LFTs and consider GI to re-evaluate if worse. Knee cultures negative x 2. Continue to observe off antibiotics. Should the patient take a turn to the worse of develop sepsis-like picture, recommend repeating cultures and re-starting broad-spectrum antibiotics. No further recommendations from the ID team. Will sign off. Please re-consult PRN. Consult Discharge Plan - Plan Additional Instructions: Follow up with your PCP in 3-5 days for reevaluation. Have repeat laboratory studies drawn on 10/04/2018. Continue taking levothyroxine daily. You will need repeat TSH drawn in approximately 6 weeks. Take oxycodone 5mg as needed for severe pain. You can take OTC ibuprofen as needed, but do not take tylenol. Return to the emergency department if you develop fevers, chills, worsening pain/swelling of your knee, or if any concerns arise. Referrals: [facility] [Outside] - 10/06/18 1:00 pm Carolyn Maldonado PAC [Physician Baggage Agent Supervisor] - 10/01/18 8:45 am NONE,PCP [Primary Care Provider] - Prescriptions: RX: OxyCODONE Immed Rel [Roxicodone 5 MG] 5 mg PO Q6HR PRN 2 Days #8 tablet PRN Reason: Moderate Pain RX: Docusate [Colace] 100 mg PO BID #60 capsule RX: Levothyroxine [Synthroid] 88 mcg PO DAILY@0630 #30 tablet - Attending Attestation I examined this patient and my medical decision-making was reviewed with the Resident Physician. I agree with the documented findings, disposition and treatment plan as described except to the extent set forth below. patient doing well clinically knee looks okay no obvious signs of infection continue to observe off antibiotics if symptoms recur then we will have to repeat arthrocentesis and get cell cough, cultures, gram stain and chemistry before we start antibiotics
[2018-09-29 15:29] LABS: ANA IgG by ELISA NONE DETECTED (None Detected)
[2018-09-30 15:01] LABS: AFP Tumor Marker Non-Pregnant 2 ng/mL (0-9)
[2018-09-30 15:16] LABS: F-Actin (sm muscle) Ab IgG 9 Units (0-19); Myeloperoxidase Ab 0 AU/mL (0-19); Serine Protease-3 Antibody 0 AU/mL (0-19)
== END 2018-09-29 14:40 | disposition home or self-care (01) | DRG 550 ==
LOC: 3NENU → SUATTDRO 19:03
PROVIDERS: ADMIT Hospitalist; ATTEND Internal Medicine